=== PATIENT | female | born 2005 | race Caucasian/White ===

== ENCOUNTER 2024-10-03 09:43 | Inpatient (IN) ==
[2024-10-03] MEDS ORDERED: SODIUM CHLORIDE 0.9% 50 ML IV PRN ×2 (10:27→10:50)
[2024-10-03] MEDS ORDERED: SODIUM CHLORIDE 0.9% 100 ML IV PRN ×2 (10:27→10:50)
[2024-10-03 10:41] LABS: Hematocrit (blood only) 17.4 % (37.0-47.0); Hemoglobin 6.2 g/dl (12.0-16.0); Mean Corpuscular Hemoglobin 46.3 pg (25.0-34.0); Mean Corpuscular Hgb Conc 35.6 g/dL (32.0-36.0); Mean Corpuscular Volume 129.9 fL (80.0-100.0); Mean Platelet Volume 9.4 fL (9.4-12.4); Nucleated RBC # (auto) 0.14 K/uL (0.00-0.12); Nucleated RBC % (auto) 1.5 %; Platelet Count 416 K/uL (130-400); RDW Coefficient of Variation 27.9 % (11.5-14.5); RDW Standard Deviation 106.4 fL (36.4-46.3); Red Blood Count 1.34 M/uL (4.20-5.40)
[2024-10-03 10:52] LABS: Anisocytosis Present; Basophils # (auto) 0.02 K/uL (0.00-0.20); Basophils % (auto) 0.2 %; Eosinophils # (auto) 0.16 K/uL (0.00-0.50); Eosinophils % (auto) 1.7 %; Immature Granulocytes # (auto) 0.47 K/uL (0.01-0.20); Lymphocytes # (auto) 1.04 K/uL (1.20-3.40); Lymphocytes % (auto) 11.1 %; Monocytes # (auto) 0.15 K/uL (0.11-0.59); Monocytes % (auto) 1.6 %; Neutrophils # (auto) 7.56 K/uL (1.40-6.50); Neutrophils % (auto) 80.4 %; Polychromasia 3+
[2024-10-03 10:53] LABS: Albumin Globulin Ratio 1.1 (0.9-2); Albumin Level 4.2 gm/dl (3.4-5.0); BUN Creatinine Ratio 18.8 (10-20); Bilirubin Direct 0.2 mg/dl (0-0.2); Bilirubin,Total 1.7 mg/dl (0.2-1.0); Calcium 9.1 mg/dl (8.6-10.3); Creatinine Clr Calc Pharmacy 198.4 ml/min; Globulin 3.8 gm/dl (2.5-4.0); Potassium 3.8 mmol/L (3.5-5.1)
--- NOTE | 2024-10-03 10:56 | Emergency Department Note ---
Impression & Plan Autoimmune hemolytic anemia ED Provider Note Name: MAIA HERNANDEZ Age: 19 Sex: Female Arrives Via: Walk-In Informant: Patient ED Provider: Darrin Gomez MD Chief Complaint: Weakness Impression: As per impressions above Medical Decision Making: Pleasant 19-year-old female arrives for evaluation worsening weakness fatigue and dizziness. She had blood work done this morning which showed severe anemia. Patient has a history of known hemolytic anemia most recent hospitalization about 2 years ago for a severe exacerbation. Patient with a hemoglobin of 6.2. Urgently discussed with oncology specialist at [facility] who advised continuing the prednisone she had already started and then transfusing her likely will need two units if not more. Patient is fully comfortable with hospitalization and transfusion here. She is hemodynamically stable she is breathing comfortably and she is in no distress. Otherwise laboratory workup is unremarkable. I do not see any clear evidence of infectious etiology causing this. I will note that her hemoglobin is dropped from 10-6 in just the last 3 weeks. Hospitalist consulted and patient brought in for further management. Triage/Nursing Notes reviewed by Me Differential:Anemia, infection, dehydration, metabolic abnormality, hypo/hyperglycemia, electrolyte disturbance, anemia, hypoxia, cardiac sources, intracerebral event, toxicologic, neurologic, as well as other pathologies. Vital Signs: reviewed and remarkable for no significant abnormalities Interventions: 1 unit PRBC Labs:ED labs Reviewed by me and remarkable for severe anemia Consults:Discussed with Dr. Mcqueen at [facility] peds hematology. Discussed with [facility] hospitalist here at [facility] who will admit patient for further management. Plan: Disposition:Hospitalization. Condition: Good History of Present Illness: 19-year-old female arrives for evaluation of weakness. Patient notes last several days increasing weakness and fatigue. She gets a bit dizzy when standing for too long has been taking increased breaks at work. She was seen by her PCP yesterday who got some blood work which noted anemia. She sent to the ER for evaluation. Patient states that currently she is feeling all right. She denies any specific chest pain, shortness of breath. She has not had a recent heavy bleeding or bruising. She did have her period which just ended without any heavy bleeding. Denies any syncope, headache, neck pain. No nausea or vomiting. Patient with long history of anemia secondary to hemolytic anemia. Has periodically been on steroids in the past though currently is on sirolimus. Last transfusion was about 2 years ago when she was sent to [facility] for hemoglobin of 4 and acute fluid overload issues. Past Medical History:See Below Home Medications:See Below Allergies: Rocephin, penicillins, sulfa. Vitals:Blood Pressure: 114/72, Pulse 106, RR 20, T 37.0C, O2 97% on RA Physical Exam: GENERAL: Patient is tired appearing and in minimal distress. Pale RESPIRATORY: No dyspnea. Clear to auscultation and equal bilaterally. CARDIOVASCULAR: Mild tachy.No murmur appreciated. EXTREMITIES: Normal motion all extremities, no cyanosis, bilateral lower leg edema L>R chronic per patient NEUROLOGIC: Alert and oriented. No focal neurologic deficits appreciated SKIN: No rash, no jaundice, no diaphoresis. PSYCH: Appropriate GCS: 15 ED Course: Times/Reassessments: Stable on repeat evaluations and in no distress. Critical Care: I have personally spent 40 minutes of critical care time in the direct management of this patient. Acute severe anemia secondary to hemolytic anemia requiring transfusion and ugent consultation with specialist. This was a life/limb threatening event. This 40 minutes is in excess of all separately billable procedures. 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/06/13) Family History (Updated 10/03/24 @ 11:55 by Carri Minaya PA-C) Father Cancer Kidney cancer Social History Smoking Status: Current every day smoker Tobacco Type: E-cigarettes / Vaping Second Hand Exposure: Yes; Do You Dip or Chew Tobacco: No; Tobacco Cessation Education Requested by Patient: No Hx Alcohol Use: Yes Alcohol type: hard liquor Hx Substance Use: No Preferred Language: [place] Island[place] Communication Ability: Effective 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 Beliefs That Will Affect Care: None marital status: Single Current Living Situation: Family current occupational status: employed Other Information That Helps Us Care for You: No Feels Safe at Home: Yes Safety Concerns: Feels Safe At This Time Assistive Devices: None Allergies Allergies Allergy/AdvReac Type Severity Reaction Status Date / Time ceftriaxone Allergy Intermediate RASH Verified 12/17/24 09:25 Penicillins Allergy Unknown AUTO Verified 08/19/24 09:25 IMMUNE DISORDER Sulfa (Sulfonamide Allergy Unknown AUTO Verified 08/19/24 09:25 Antibiotics) IMMUNE DISORDER Home Meds Home Medications Medication Instructions Recorded Confirmed calcium carbonate (Tums) 200 mg PO DIRECTED PRN 03/28/23 10/03/24 HEARTBURN/INDIGESTION cholecalciferol (vitamin D3) 25 25 mcg PO DAILY 03/28/23 10/03/24 mcg (1,000 unit) capsule (Vitamin D3) sirolimus 2 mg tablet 2 mg PO QAM 05/19/23 10/03/24 aripiprazole 15 mg tablet 15 mg PO DAILY 08/19/24 10/03/24 buspirone 15 mg tablet 15 mg PO BID 08/19/24 10/03/24 levothyroxine 137 mcg tablet 137 mcg PO DAILYBB 08/19/24 10/03/24 sertraline 100 mg tablet 100 mg PO DAILY 08/19/24 10/03/24 trazodone 50 mg tablet 50 mg PO HS PRN sleeplessness 08/19/24 10/03/24 triamcinolone acetonide 0.1 % 1 applic topical BID 08/19/24 10/03/24 topical cream Results & Data (ED) Vital Signs Vital Signs - 24 hr 10/03/24 11:21 10/03/24 11:27 10/03/24 11:30 Pulse Rate 116 H 95 H Pulse Rate [Apical] Pulse Rate from SpO2 Sensor 118 H 95 H Respiratory Rate 18 25 H Respiratory Effort / Characteristics Respiratory Depth Respiratory Pattern Blood Pressure 141/88 H Blood Pressure [Left Arm] Blood Pressure Mean 105 Blood Pressure Mean [Left Arm] Pulse Oximetry 98 97 Oxygen Delivery Method 10/03/24 11:36 10/03/24 11:48 10/03/24 11:51 Pulse Rate 95 H 97 H 94 H Pulse Rate [Apical] Pulse Rate from SpO2 Sensor 95 H 97 H 94 H Respiratory Rate 28 H 33 H 29 H Respiratory Effort / Characteristics Respiratory Depth Respiratory Pattern Blood Pressure Blood Pressure [Left Arm] Blood Pressure Mean Blood Pressure Mean [Left Arm] Pulse Oximetry 97 98 98 Oxygen Delivery Method 10/03/24 12:00 10/03/24 12:00 10/03/24 12:00 Pulse Rate 99 H Pulse Rate [Apical] 93 H Pulse Rate from SpO2 Sensor 100 H Respiratory Rate 20 16 Respiratory Effort / Characteristics Non-Labored Spontaneous Respiratory Depth Normal Respiratory Pattern Regular Blood Pressure 147/95 H Blood Pressure [Left Arm] 147/95 H Blood Pressure Mean 105 Blood Pressure Mean [Left Arm] 112 Pulse Oximetry 97 98 Oxygen Delivery Method Room Air Laboratory Data 10/04/24 06:40 10/04/24 06:40 Lab Results 10/03/24 10/03/24 10/03/24 Range/Units 10:15 10:15 10:15 WBC 9.40 (4.8-10.8) K/ul RBC 1.34 L (4.20-5.40) M/uL Hgb 6.2 L* (12.0-16.0) g/dl Hct 17.4 L* (37.0-47.0) % MCV 129.9 H (80.0-100.0) fL MCH 46.3 H (25.0-34.0) pg MCHC 35.6 (32.0-36.0) g/dL RDW Std Deviation 106.4 H (36.4-46.3) fL RDW Coeff of Jesenia 27.9 H (11.5-14.5) % Plt Count 416 H (130-400) K/uL MPV 9.4 (9.4-12.4) fL Immature Gran % (Auto) 5.0 % Neut % (Auto) 80.4 % Lymph % (Auto) 11.1 % [place] % (Auto) 1.6 % Eos % (Auto) 1.7 % Baso % (Auto) 0.2 % Reticulocyte % (Auto) 26.26 H Cancelled (0.50-2.00) % Neut # (Auto) 7.56 H (1.40-6.50) K/uL Lymph # (Auto) 1.04 L (1.20-3.40) K/uL [place] # (Auto) 0.15 (0.11-0.59) K/uL Eos # (Auto) 0.16 (0.00-0.50) K/uL Baso # (Auto) 0.02 (0.00-0.20) K/uL Reticulocyte # 0.350 H Cancelled (0.020-0.100) 10^6/uL Immature Gran # (Auto) 0.47 H (0.01-0.20) K/uL Absolute Nucleated RBC 0.14 H (0.00-0.12) K/uL Nucleated RBC % (auto) 1.5 % Polychromasia 3+ Anisocytosis Present Peripher Smr Path Cons Sodium (136-145) mmol/L Potassium (3.5-5.1) mmol/L Chloride (98-107) mmol/L Carbon Dioxide (21-32) mmol/L Anion Gap (3-11) BUN (6-23) mg/dl Creatinine (0.6-1.2) mg/dl Est Cr Clr Drug Dosing ml/min eGFR BUN/Creatinine Ratio (10-20) Glucose (70-99(Fasting)) mg/dl Calcium (8.6-10.3) mg/dl Total Bilirubin (0.2-1.0) mg/dl Direct Bilirubin (0-0.2) mg/dl AST (13-39) U/L ALT (7-52) U/L Alkaline Phosphatase (34-104) U/L Lactate Dehydrogenase (86-244) U/L Total Protein (6.0-8.3) gm/dl Albumin (3.4-5.0) gm/dl Globulin (2.5-4.0) gm/dl Albumin/Globulin Ratio (0.9-2) Blood Type Antibody Screen Antibody ID Comment Crossmatch 10/03/24 Range/Units 10:15 WBC (4.8-10.8) K/ul RBC (4.20-5.40) M/uL Hgb (12.0-16.0) g/dl Hct (37.0-47.0) % MCV (80.0-100.0) fL MCH (25.0-34.0) pg MCHC (32.0-36.0) g/dL RDW Std Deviation (36.4-46.3) fL RDW Coeff of Jes[place] (11.5-14.5) % Plt Count (130-400) K/uL MPV (9.4-12.4) fL Immature Gran % (Auto) % Neut % (Auto) % Lymph % (Auto) % [place] % (Auto) % Eos % (Auto) % Baso % (Auto) % Reticulocyte % (Auto) (0.50-2.00) % Neut # (Auto) (1.40-6.50) K/uL Lymph # (Auto) (1.20-3.40) K/uL [place] # (Auto) (0.11-0.59) K/uL Eos # (Auto) (0.00-0.50) K/uL Baso # (Auto) (0.00-0.20) K/uL Reticulocyte # (0.020-0.100) 10^6/uL Immature Gran # (Auto) (0.01-0.20) K/uL Absolute Nucleated RBC (0.00-0.12) K/uL Nucleated RBC % (auto) % Polychromasia Anisocytosis Peripher Smr Path Cons Cancelled Sodium 137 (136-145) mmol/L Potassium 3.8 (3.5-5.1) mmol/L Chloride 108 H (98-107) mmol/L Carbon Dioxide 21 (21-32) mmol/L Anion Gap 8 (3-11) BUN 9 (6-23) mg/dl Creatinine 0.48 L (0.6-1.2) mg/dl Est Cr Clr Drug Dosing 198.4 ml/min eGFR 138.11 BUN/Creatinine Ratio 18.8 (10-20) Glucose 135 H (70-99(Fasting)) mg/dl Calcium 9.1 (8.6-10.3) mg/dl Total Bilirubin 1.7 H (0.2-1.0) mg/dl Direct Bilirubin 0.2 (0-0.2) mg/dl AST 22 (13-39) U/L ALT 15 (7-52) U/L Alkaline Phosphatase 87 (34-104) U/L Lactate Dehydrogenase 338 H (86-244) U/L Total Protein 8.0 (6.0-8.3) gm/dl Albumin 4.2 (3.4-5.0) gm/dl Globulin 3.8 (2.5-4.0) gm/dl Albumin/Globulin Ratio 1.1 (0.9-2) Blood Type A Positive Antibody Screen POSITIVE A Antibody ID Comment Cancelled Crossmatch See Detail Administered Medications Famotidine (Famotidine 20 Mg Tab) 20 mg PO BID FABRICIO Stop: 11/03/24 08:59 Last Admin: 10/04/24 09:39 Dose: 20 mg Documented By: JESSICA Prednisone (Prednisone 50 Mg Tab) 50 mg PO BID FABRICIO Stop: 11/02/24 20:59 Last Admin: 10/04/24 08:57 Dose: 50 mg Documented By: Admin: 10/03/24 20:54 Dose: 50 mg Documented By: EZE Sirolimus (Sirolimus 0.5 Mg Tablet) 2 mg PO QAM FABRICIO Stop: 11/03/24 09:14 Last Admin: 10/04/24 09:39 Dose: 2 mg Documented By: JESSICA Discharge Plan Visit Data Chief Complaint: Referred by Doctor Stated Complaint: HBG 6.6, REF BY DR ED Provider: Darrin Gomez Discharge Problem: Autoimmune hemolytic anemia Patient Disposition: Admitted As Inpatient Discharge Instructions Interventions: ED Discharge Assessment Last Done: 10/03/24 12:55
--- NOTE | 2024-10-03 11:58 | History & Physical Report ---
Date of Service October 03, 2024 Assessment & Plan (1) Autoimmune hemolytic anemia: (2) Mccormick syndrome: (3) Hypothyroidism: Plan Autoimmune hemolytic anemia Titi syndrome -Admit the patient to [facility] with telemetry -Transfuse 2 units PRBCs, immunosuppressed at baseline, will need irradiated/leukoreduced blood from [facility], -Add on haptoglobin, LDH, reticulocyte count, peripheral blood smear -Continue prednisone 50 mg twice daily stress dosing - Discussed with Dr. 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 -Continue sirolimus Hypothyroidism -Continue levothyroxine 137 mcg daily Borderline Personality disorder Anxiety with depression -Continue Abilify 10 mg daily, BuSpar 15 mg twice daily, sertraline 100 mg daily. Hold trazodone 100 mg HS prn due to fatigue DVT ppx: Ambulatory Lines: PIV x 1 FEN/GI: Regular diet CODE: Full code Dispo: From home, likely to remain in the hospital x 1-2 days A total of 75 minutes were spent with greater than 50% of that time face to face with the patient, personally reviewing all current laboratories, imaging studies, past medication reconciliation, outpatient chart review, and discussion with specialists to collaborate care for the patient with attending. Please see attending documentation for corrections and/or additions. 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 She also admits to having increased pallor compared to what her typical complexion is. Patient did not quite feel herself therefore presented to lab and had routine blood work drawn as this is similar to previous exacerba tions of anemia. Last time she required a transfusion was in 2022 with 1-2 units. This morning she noticed progressive shortness of breath when attempting to tie her shoes. She began taking her stress dose prednisone 50 mg twice daily this morning for such and presented here to the hospital. Hemoglobin is found to be 6.2 compared to 10.1 on 09/10/24. She had outpatient blood work completed on yesterday which showed hemoglobin of 6.6 and was referred here. Patient admits to nicotine vape use daily, would like a nicotine patch. She denies any other illicit drug use or alcohol use. Allergies Allergy/AdvReac Type Severity Reaction Status Date / Time ceftriaxone Allergy Intermediate RASH Verified 08/19/24 09:25 Penicillins Allergy Unknown AUTO Verified 08/19/24 09:25 IMMUNE DISORDER Sulfa (Sulfonamide Allergy Unknown AUTO Verified 08/19/24 09:25 Antibiotics) IMMUNE DISORDER Home Medications Medication Instructions Recorded Confirmed Type calcium carbonate (Tums) 200 mg PO DIRECTED PRN 03/28/23 10/03/24 History HEARTBURN/INDIGESTION cholecalciferol (vitamin D3) 25 25 mcg PO DAILY 03/28/23 10/03/24 History mcg (1,000 unit) capsule (Vitamin D3) sirolimus 2 mg tablet 2 mg PO QAM 05/19/23 10/03/24 History aripiprazole 15 mg tablet 15 mg PO DAILY 08/19/24 10/03/24 History buspirone 15 mg tablet 15 mg PO BID 08/19/24 10/03/24 History levothyroxine 137 mcg tablet 137 mcg PO DAILYBB 08/19/24 10/03/24 History sertraline 100 mg tablet 100 mg PO DAILY 08/19/24 10/03/24 History trazodone 50 mg tablet 50 mg PO HS PRN sleeplessness 08/19/24 10/03/24 History triamcinolone acetonide 0.1 % 1 applic topical BID 08/19/24 10/03/24 History topical cream Past Med/Surg History Problem List (Updated 10/03/24 @ 12:26 by Carri Minaya PA-C) Mccormick syndrome Anxiety Autoimmune hemolytic anemia (Chronic 06/06/13) Family History (Updated 10/03/24 @ 11:55 by Carri Minaya PA-C) Father Cancer Kidney cancer Social History Smoking Status: Current every day smoker Tobacco Type: E-cigarettes / Vaping Second Hand Exposure: Yes; Do You Dip or Chew Tobacco: No; Tobacco Cessation Education Requested by Patient: No Hx Alcohol Use: Yes Alcohol type: hard liquor Hx Substance Use: No Preferred Language: Qatari Communication Ability: Effective Manager Music Required: No Beliefs That Will Affect Care: None marital status: Single Current Living Situation: Family current occupational status: employed Other Information That Helps Us Care for You: No Feels Safe at Home: Yes Safety Concerns: Feels Safe At This Time Assistive Devices: None Review of Systems Review of Systems: Constitutional: No fever, sweats or chills, no lightheadedness or dizziness, + pallor Eyes: No diplopia, no worsening or blurred vision ENT: normal hearing, no trouble swallowing Respiratory: No cough, sputum, + dyspnea on exertion Cardiovascular: No chest pain, tightness or palpitations Abdomen: No pain, nausea, vomiting, diarrhea or constipation Musculoskeletal: No joint pain, calf pain, swelling Neurologic: + Generalized fatigue and weakness, no numbness/tingling, or balance problems Psychiatric: History of anxiety and depression on medication Skin: No rash or itch, + pallor Physical Exam Physical Exam: General: awake, alert, no apparent distress, obese BMI 43.6, white female, + pallor Head: Normocephalic, atraumatic ENT: PERRL, EOMI, no pharyngeal exudate, mucous membranes moist Chest: Clear to auscultation, on room air, no adventitious breath sounds Cardiac: Regular rate and rhythm, no murmur, no JVD, normal peripheral pulses, good capillary refill Abdominal: NABS x 4 quadrants, soft, nondistended, nontender to palpation, no rebound or guarding Extremities: Normal inspection, no peripheral edema or erythema, calfs nontender to palpation Psych: Normal mood and affect Neuro: AAO x 3, strength intact bilaterally and rated 5/5, no motor deficits, speech is clear, no peripheral sensory deficits Results & Data Results & Data Vital Signs (Past 12 Hours) Vital Signs Temp Pulse Pulse Resp BP BP Pulse Ox 10/03/24 11:03 105 H 22 96 10/03/24 11:00 134/72 10/03/24 10:54 114/77 10/03/24 10:51 101 H 13 10/03/24 10:48 101 H 15 10/03/24 10:21 100 H 26 H 10/03/24 10:20 106 H 10/03/24 10:06 96 H 20 114/72 97 10/03/24 10:00 114/72 10/03/24 09:51 37.0 C 103 H 20 135/84 95 O2 Del Method 10/03/24 11:03 10/03/24 11:00 10/03/24 10:54 10/03/24 10:51 10/03/24 10:48 10/03/24 10:21 10/03/24 10:20 10/03/24 10:06 Room Air 10/03/24 10:00 10/03/24 09:51 Room Air Laboratory Results 10/03/24 10:15 WBC 9.40 RBC 1.34 L Hgb 6.2 L* Hct 17.4 L* MCV 129.9 H MCH 46.3 H MCHC 35.6 RDW Std Deviation 106.4 H RDW Coeff of Jes[place] 27.9 H Plt Count 416 H MPV 9.4 Immature Gran % (Auto) 5.0 Neut % (Auto) 80.4 Lymph % (Auto) 11.1 [place] % (Auto) 1.6 Eos % (Auto) 1.7 Baso % (Auto) 0.2 Neut # (Auto) 7.56 H Lymph # (Auto) 1.04 L [place] # (Auto) 0.15 Eos # (Auto) 0.16 Baso # (Auto) 0.02 Immature Gran # (Auto) 0.47 H Absolute Nucleated RBC 0.14 H Nucleated RBC % (auto) 1.5 Polychromasia 3+ Anisocytosis Present Sodium 137 Potassium 3.8 Chloride 108 H Carbon Dioxide 21 Anion Gap 8 BUN 9 Creatinine 0.48 L Est Cr Clr Drug Dosing 198.4 eGFR 138.11 BUN/Creatinine Ratio 18.8 Glucose 135 H Calcium 9.1 Total Bilirubin 1.7 H Direct Bilirubin 0.2 AST 22 ALT 15 Alkaline Phosphatase 87 Total Protein 8.0 Albumin 4.2 Globulin 3.8 Albumin/Globulin Ratio 1.1 Crossmatch See Detail Supervising Physician Co-Signing Physician Notes Patient is a 19-year-old female with past medical history of autoimmune hemolytic anemia on sirolimus 2 mg once a day who presents to the hospital after she was found to have low hemoglobin as outpatient along with worsening fatigue. Patient's hemoglobin was found to be 6.2 g/dL. After discussion with her pediatric plastic parts fabricator trimmer; recommended 2 units of packed RBC transfusion along with continuation of prednisone 50 mg twice daily. Discussed with blood bank; blood is being obtained from [facility] and will be available here likely later in the evening. Peripheral blood smear reviewed; finding consistent with autoimmune hemolytic anemia. Reticulocyte count elevated as well as LDH. I have reviewed the advanced practitioner's documentation, and I agree with, and take responsibility for the plan of care I spent a total of 30 minutes coordinating, documenting, and providing care for this patient excluding time spent in the performance of separately billed services. All of the aforementioned completed while collaborating with the assigned advanced practitioner for a full treatment plan
[2024-10-03 13:15] LABS: Reticulocyte % 26.26 % (0.50-2.00)
--- OUTSIDE RECORDS SUMMARY | 2024-10-03 13:58 | External Medical Summary | Summary of Care ---
Author Name Unknown Organization [facility] Address [address] [facility] [place] [address] Phone [phone] Care Team Providers Care Bundle Shaker Name Role Phone Marito Echeverria Primary Care Provider Reason for Visit * Reason Comments Outpatient Testing Encounter Details Date Type Department Care Team (Late st Contact Info) Description 10/02/2024 3:50 PM EST Laboratory Laboratory [address] [place] [phone] [place] [address] AIHA (autoimmune hemolytic anemia) ([facility]); [employer] Other*[id number] Allergies Active Allergy Reactions Criticality Noted Date Comments Sulfamethoxazole-Tri methoprim 03/21/2018 Penicillins 12/18/2012 Father said he was told not to give pt penicillin. Rituximab Abdominal pain,Flushing 09/30/2010 See clinic notes Ceftriaxone Sodium Hives Medium 09/13/2010 30 minutes post infusion Sulfa Antibiotics Hematologic complications (Please comment) 09/07/2008 Concerns of bactrim association with AIHA documented as of this encounter (statuses as of 10/02/2024) Medications TYLENOL 8 HOUR 650 MG PO TBCRIndications:He adache(784.0) Please take 1 tab by mouth every 8 hours for headache 60 Tab 6 2 Active VITAMIN D3 HIGH POTENCY 1000 UNITS CapsuleIndications :Warm antibody hemolytic anemia (HCC),Vitamin D insufficiency TAKE 1 CAP BY MOUTH DAILY. 30 Cap 2 7 Active ARIPiprazole 10 MG Oral Tablet (Abilify) Take 1 Tablet by mouth in the morning. 3 Active Loratadine 10 MG Oral Tablet (Claritin) Take 1 Tablet by mouth in the morning. 4 Active Levothyroxine Sodium 137 MCG Oral Tablet Take 1 Tablet by mouth in the morning. (at least 30 min prior to breakfast or other meds). 90 Tablet 3 4 Active Nystatin 944787 UNIT/GM External Cream Apply topically to affected area 2 times a day. To affacted area for two weeks. 60 g 2 4 Active Sertraline HCl 100 MG Oral Tablet (Zoloft) Take 1 Tablet by mouth in the morning. 4 Active busPIRone HCl 15 MG Oral Tablet (Buspar) Take 1 Tablet by mouth in the morning and 1 Tablet before bedtime. 4 Active Sirolimus 2 MG Oral TabletIndications: Warm antibody hemolytic anemia (HCC) Take 1 Tablet by mouth in the morning. 60 Tablet 2 4 Active Meclizine HCl 25 MG Oral Tablet (Antivert)Indicati ons:Vertigo Take 1 Tablet by mouth 3 times a day as needed for Dizziness. 30 Tablet 1 4 Active Triamcinolone Acetonide 0.1 % External Cream (Aristocort)Indica tions:Rash and nonspecific skin eruption Apply topically to affected area 2 times a day. To affected area. 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 Chronic urticaria 10/01/2017 Overview (10/01/2017): since 2014 Immunosuppressed status 01/27/2016 AIHA (autoimmune hemolytic anemia) 05/12/2015 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 Medically noncompliant documented as of this encounter (statuses as of 10/02/2024) Resolved Problems Problem Noted Date Diagnosed Date Resolved Date Current moderate episode of major depressive disorder without prior episode 03/25/2020 2 Need for pneumocystis prophylaxis 01/27/2016 02/01/2018 Need for pneumocystis prophylaxis 05/12/2015 08/07/2015 Internal tibial torsion 12/02/201305/2015 Ankle weakness 12/02/2013 05/12/2015 Genu valgum 12/02/2013 05/12/2015 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 (11/29/2011): Due to IVIG Hypogammaglobulinemia 09/08/20092009 Acute sinusitis 08/19/2009 09/08/2009 Autoimmune hemolytic anemia 09/22/2007 08/07/2015 Seizure disorder, complex pa rtial, without intractable epilepsy 06/25/2007 09/08/2009 documented as of this encounter (statuses as of 10/02/2024) Immunizations Name Administration Dates Next Due DTaP Dipth/Tet/Acell Pertussis (Infanrix), Peds 01/18/2007,05/12/2004,2003,2002,2003 HIB PRP-T, 4 Dose, PF, IM (H iberix, ActHib) 05/12/2004,2003,2003,2002 Hepatitis A, Ped/Adol., 18 y ear and below, 2-Dose 01/21/2008,01/18/2007 Hepatitis B, 0-19 yrs 2003,2003,01/01 IPV - Polio Virus Vaccine (Inact) 2006,2003,2003,2002 MMR - Measles/Mumps/Rubella Vaccine 01/18/2007,0 01/18/2004 Pneumococcal Conjugate Vacci ne, 7 Valent 07/19/2004,2003,2003,2002 Seasonal Influenza Vac., MDV , IM, 0.5 mL (Fluzone) 08/19/2010,05/24/2009 Varicella Vaccine (Chicken Pox) 01/18/2007,01/17 documented as of this encounter Social History Tobacco Use Types Packs/Day Years Used Date Smoking Tobacco: Former Cigarettes Passive Smoke Exposure: Yes Smokeless Tobacco: Never Comments:Parents smoke outsi de Alcohol Use Standard Drinks/Week Comments Never 0 (1 standard drink = 0.6 oz pur e alcohol) PHQ-2 Answer Date Recorded PHQ-2 Score 0 11/15/2018 Comments No Sex and Gender Information Value Date Recorded Sex Assigned at Female 10/17/2022 2:14 PM EST Legal Sex Female 5:50 AM EST Gender Identity Transgender Male 10/17/2022 2:14 PM EST Sexual Orientation pansexual 03/28/2023 9: 16 PM EDT documented as of this encounter Functional Status * Are you deaf or do you have serious difficulty hearing? Answer Date of Assessment Author No 03/28/2023 8:28 PM EDT Preeti Tellez RN * Are you blind or do you have serious difficulty seeing, even when wearing glasses? Answer Date of Assessment Author No 03/28/2023 8:28 PM EDT Preeti Tellez RN * Do you have serious difficulty walking or climbing stairs? (5 years old or older) Answer Date of Assessment Author No 03/28/2023 8:28 PM EDT Preeti Peralta RN * Do you have difficulty dressing or bathing? (5 years old or older) Answer Date of Assessment Author No 03/28/2023 8:28 PM EDT Preeti Tellez RN * Because of a physical, mental, or emotional condition, do you have difficulty doing errands alone such as visiting a doctors office or shopping? (15 years old or older) Answer Date of Assessment Author No 03/28/2023 8:28 PM EDT Preeti Tellez RN documented as of this encounter Mental Status * Because of a physical, mental, or emotional condition, do you have serious difficulty concentrating, remembering, or making decisions? (5 years old or older) Answer Entry Date Author No 03/28/2023 8:28 PM EDT Preeti Tellez RN documented in this encounter Plan of Treatment Upcoming Encounters Date Type Department Care Team (Late st Contact Info) Description 11/11/2024 8:40 AM EDT [facility] [address] [place] [address] Dusty Perry MD [address], [place] [phone] 07/03/2025 10:40 AM EDT Office Visit Family Medicine [address] [phone] Madison Montelongo MD [address] [place] [address] [place] [address] Pending Results Name Type Priority Associated Diagnoses Date /Time CBC WITH WBC DIFFERENTIAL Lab Routine AIHA (autoimmune hemolytic anemia) ([facility]) 10/02/2024 3:46 PM EST RETICULOCYTE PANEL Lab Routine AIHA (autoimmune hemolytic anemia) ([facility]) 10/02/2024 3:46 PM EST LD Lab Routine AIHA (autoimmune hemolytic anemia) ([facility]) 10/02/2024 3:46 PM EST CBC Lab Routine AIHA (autoimmune hemolytic anemia) ([facility]) 10/02/2024 3:46 PM EST DIFFERENTIAL, AUTOMATED Lab Routine AIHA (autoimmune hemolytic anemia) ([facility]) 10/02/2024 3:46 PM EST Scheduled Orders Name Type Priority Associated Diagnoses Orde r Schedule MYCODE SST1 Lab Routine [employer] Other*[id number] Ordered: 10/02/2024 MYCODE SST2 Lab Routine [employer] Other*[id number] Ordered: 10/02/2024 Health Maintenance Due Date Last Done Comments COVID-19 Vaccine (#1) 01/10/2008 DTap/Tdap Vaccines (6 - Tdap) 2014 01/18/2007, 05/12/2004, 2003, Additional history exists HPV (Gardasil) Vaccine (1 - 3-dose series) 2018 Depression Monitoring 11/16/2019 11/15/2018 Pneumococcal Vaccine: Pediatrics (0 to 5 Years) and At-Risk Patients (6 to 18 Years and 19+ Years) (1 of 2 - PCV) 2022 Pap Smear 01/10/2024 Gonorrhea / Chlamydia Screen 03/29/2024 03/29/2023 Influenza Vaccine (FLU shot) (#1) 2024 08/19/2010, 05/24/2009 Yearly Wellness Visit 06/02/2025 06/02/2024 , 08/01/2022, 03/25/2020, Additional history exists TSH 08/19/2025 08/19/2024, 07/05, 07/11/2024, Additional history exists Hepatitis B Vaccine Completed 2003, 2003, 2003 MENINGOCOCCAL (MENACTRA/MENVEO) Aged Out No longer eligible based on patient's age to complete this topic documented as of this encounter Medical Devices Not on filedocumented as of this encounter Visit Diagnoses Diagnosis AIHA (autoimmune hemolytic anemia) (HCC) Autoimmune hemolytic anemias [employer] Other*[id number] documented in this encounter Advance Directives * Full Code (Latest Code Status on File) Date Activated Date Inactivated Comments 03/28/2023 8:16 PM 04/01/2023 2:17 PM Question Answer Comments Discussion of Advance Direct comfort occurred with: Not Discussed due to patient's condition Does the patient have a Living Will? No Does the patient have Health Care Power of Ingot Buggy Operator? No * Full Code Date Activated Date Inactivated Comments 12/25/2014 2:53 PM 12/30/2014 4:31 PM This order r eflects the patients wishes and were consensually agreed upon. Question Answer Comments Discussion of Advance Directives occurred with: Not Discussed Does the patient have a Living Will? No Does the patient have Health Care Power of Attor bob? No * Full Code Date Activated Date Inactivated Comments 12/28/2011 1:56 PM 01/01/2012 6:48 PM This order r eflects the patients wishes and were consensually agreed upon. Question Answer Comments Discussion of Advance Directives occurred with: Not Discussed * Full Code Date Activated Date Inactivated Comments 11/27/2011 7:32 PM 11/29/2011 6:18 PM This order r eflects the patients wishes and were consensually agreed upon. Question Answer Comments Discussion of Advance Directives occurred with: Not Discussed Does the patient have a Living Will? No Does the patient have Health Care Power of Attor bob? No * Full Code Date Activated Date Inactivated Comments 11/27/2011 6:13 PM 11/27/2011 7:32 PM This order r eflects the patients wishes and were consensually agreed upon. Question Answer Comments Discussion of Advance Directives occurred with: Not Discussed Does the patient have a Living Will? No Does the patient have Health Care Power of Attor bob? No Care Teams Bundle Shaker Relationship Specialty Start Date End Date Marito Echeverria CRNP [address] [place] [address] [place] [phone] PCP - General Nurse Practitioner 09/10/24 documented as of this encounter
--- OUTSIDE RECORDS SUMMARY | 2024-10-03 13:58 | External Medical Summary | Summary of Care ---
Author Name Unknown Organization [facility] Address [address] [place] [address] Phone [phone] Care Team Providers Care Procurement Intern Name Role Phone Marito Echeverria Primary Care Provider Encounter Details Date Type Department Care Team (Late st Contact Info) Description 10/03/2024 Orders Only Pediatric Hematology/Oncology, [place] [address] [place] [address] Alejandra Fung MD [address] [place] [address] AIHA (autoimmune hemolytic anemia) (HCC)* Allergies Active Allergy Reactions Criticality Noted Date Comments Sulfamethoxazole-Tri methoprim 03/21/2018 Penicillins 12/18/2012 Father said he was told not to give pt penicillin. Rituximab Abdominal pain,Flushing 09/30/2010 See clinic notes Ceftriaxone Sodium Hives Medium 09/13/2010 30 minutes post infusion Sulfa Antibiotics Hematologic complications (Please comment) 09/07/2008 Concerns of bactrim association with AIHA documented as of this encounter (statuses as of 10/03/2024) Medications TYLENOL 8 HOUR 650 MG PO [...] meds). 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 Chronic urticaria 10/01/2017 Overview (10/01/2017): since 2014 Immunosuppressed status 01/27/2016 AIHA (autoimmune hemolytic anemia) 05/12/2015 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 Medically noncompliant documented as of this encounter (statuses as of 10/03/2024) Resolved Problems Problem Noted Date Diagnosed Date Resolved Date Current moderate episode of major depressive disorder without prior episode 03/25/2020 2 Need for pneumocystis prophylaxis 01/27/2016 02/01/2018 Need for pneumocystis prophylaxis 05/12/2015 08/07/2015 Internal tibial torsion 12/02/2013 09/05/2015 Ankle weakness 12/02/2013 05/12/2015 Genu valgum 12/02/2013 05/12/2015 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 (11/29/2011): Due to IVIG Hypogammaglobulinemia 09/08/20092009 Acute sinusitis 08/19/2009 09/08/2009 Autoimmune hemolytic anemia 09/22/2007 08/07/2015 Seizure disorder, complex pa rtial, 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 (5 years old or older) Answer Entry Date Author No 03/28/2023 8:28 PM EDT Klementov ich, Preeti, RN documented in this encounter Plan of Treatment Upcoming Encounters Date Type Department Care Team (Late st Contact Info) Description 11/11/2024 8:40 AM EDT Telemedicine Pediatric Hematology/Oncology, [place] [address] [place] [address] Dusty Perry MD [address] [place] [address] 07/03/2025 10:40 AM EDT Office Visit Family Medicine [address] [phone] Madison Montelongo MD [address] [place] [address] [place] [address] Scheduled Orders Name Type Priority Associated Diagnoses Orde r Schedule CBC WITH WBC DIFFERENTIAL Lab Routine AIHA (autoimmune hemolytic anemia) (HCC) Daily for 4 Occurrences starting 10/03/2024 until 10/03/2025 LD Lab Routine AIHA (autoimmune hemolytic anemia) (HCC) Daily for 4 Occurrences starting 10/03/2024 until 10/03/2025 RETICULOCYTE PANEL Lab Routine AIHA (autoimmune hemolytic anemia) (HCC) Daily for 4 Occurrences starting 10/03/2024 until 10/03/2025 Health Maintenance Due Date Last Done Comments [...] 03/25/2020, Additional history exists TSH 08/19/2025 08/19/2024, 11/2 09/2023, 07/11/2024, Additional history exists Hepatitis B Vaccine Completed 2003, 2003, 2003 MENINGOCOCCAL (MENACTRA/MENVEO) Aged Out No longer eligible based on patient's age to complete this topic documented as of this encounter Medical Devices Not on filedocumented as of this encounter Visit Diagnoses Diagnosis AIHA (autoimmune hemolytic anemia) (HCC)- Primary Autoimmune hemolytic anemias documented in this encounter Advance Directives * Full Code (Latest Code Status on File) Date Activated Date Inactivated Comments 03/28/2023 8:16 PM 04/01/2023 2:17 PM Question Answer Comments Discussion of Advance Direct comfort occurred with: Not Discussed due to patient's condition Does the patient have a Living Will? No Does the patient have Health Care Power of Convention Services Director? No * Full Code Date Activated Date [...] 7:32 PM 11/29/2011 6:18 PM This order reflects the patients wishes and were consensually agreed [...] Power of Attor bob? No Care Teams Procurement Intern Relationship Specialty Start Date End Date Marito Echeverria CRNP [address] [place] [address] [place] [phone] PCP - General Nurse Practitioner 09/10/24 documented as of this encounter
--- OUTSIDE RECORDS SUMMARY | 2024-10-03 13:58 | External Medical Summary | Summary of Care ---
Author Name Unknown Organization [facility] Address [address] [place] [address] Phone [phone] Care Team Providers Care Remelt Worker Name Role Phone Marito Echeverria Primary Care Provider Reason for Visit * Reason Onset Date Comments Test Results 10/03/2024 Encounter Details Date Type Department Care Team (Late st Contact Info) Description 10/03/2024 Telephone Pediatric Hematology/Oncology, [place] [address] [place] [address] Alejandra Fung MD [address] [place] [address] Test Results Allergies Active Allergy Reactions Criticality Noted Date [...] meds). 90 Tablet 3 4 Active Nystatin 491706 UNIT/GM External Cream Apply topically to affected [...] Date Author No 03/28/2023 8:28 PM EDT Klemento vich, Preeti, RN documented in this encounter Miscellaneous Notes * Telephone Encounter - Alejandra Fung MD - 10/03/2024 8:19 AM EST I spoke at length with Claudy regarding interval labs drawn 10/02/24 that showed a precipitous drop in hemoglobin from 10.1 g/dL on 09/10/24 to 6.6 g/dL on 10/02/24. Claudy endorsed that they have started 50 mg BID prednisone, as usual during a flare. They endorsed headache and feeling dizzy. I advised to present to [facility] ED for PRBC transfusion; they stated that previously [place] ED was unable to provide blood (likely due to AIHA ORALIA difficulties). Claudy is unable to present to ED now as they don't have transportation, but endorsed they will be presenting to therapy group today who will be able to transport them to [place] ED via ambulance/ambulette. I advised Claudy to seek emergency care for any injury/syncopal episode in the meantime. documented in this encounter Plan of Treatment Upcoming Encounters Date Type Department Care Team (Late st Contact Info) Description 11/11/2024 8:40 AM EDT [facility] [address] [place] [address] Dusty Perry MD [address] [place] [address] 07/03/2025 10:40 AM EDT Office Visit Family Medicine [address] [phone] Madison Montelongo MD [address] [place] [address] [place] [phone] Health Maintenance Due Date Last Done Comments [...] Not on filedocumented as of this encounter Advance Directives * Full Code (Latest Code Status on File) Date Activated Date Inactivated Comments 03/28/2023 8:16 PM 04/01/2023 2:17 PM Question Answer Comments Discussion of Advance Direct comfort occurred with: Not Discussed due to patient's condition Does the patient have a Living Will? No Does the patient have Health Care Power of Topology Professor? No * Full Code Date Activated Date [...] Power of Attor bob? No Care Teams Remelt Worker Relationship Specialty Start Date End Date Marito Echeverria CRNP [address] [place] [address] [place] [phone] PCP - General Nurse Practitioner 09/10/24 documented as of this encounter
--- OUTSIDE RECORDS SUMMARY | 2024-10-03 13:58 | External Medical Summary | Summary of Care ---
Author Name Unknown Organization [facility] Address [address] [place] [place] [address] Phone [phone] Care Team Providers Care Wild Life Photographer Name Role Phone Marito Echeverria Primary Care Provider Reason for Visit * Reason Comments Outpatient Testing Encounter Details Date Type Department Care Team (Late st Contact Info) Description 10/02/2024 3:50 PM EST Laboratory Laboratory [address] [place] [phone] [place] [address] AIHA (autoimmune hemolytic anemia) ([facility]); [employer] Other*[id number] Allergies Active Allergy Reactions Criticality Noted Date [...] meds). 90 Tablet 3 4 Active Nystatin 048351 UNIT/GM External Cream Apply topically to affected [...] Description 11/11/2024 8:40 AM EDT [facility] [address] [place] [address] Dusty Perry MD [address] [place], [place] [phone] 07/03/2025 10:40 AM EDT Office Visit Family Medicine [address] [phone] [place] Montelongo MD [address] [place] [address] [place] [address] Pending Results Name Type Priority Associated Diagnoses Date /Time CBC WITH WBC DIFFERENTIAL Lab Routine AIHA (autoimmune hemolytic anemia) ([facility]) 10/02/2024 3:46 PM EST RETICULOCYTE PANEL Lab Routine AIHA (autoimmune hemolytic anemia) ([facility]) 10/02/2024 3:46 PM EST LD Lab Routine AIHA (autoimmune hemolytic anemia) ([facility]) 10/02/2024 3:46 PM EST CBC Lab Routine AIHA (autoimmune hemolytic anemia) ([facility]) 10/02/2024 3:46 PM EST DIFFERENTIAL, AUTOMATED Lab Routine AIHA (autoimmune hemolytic anemia) ([facility]) 10/02/2024 3:46 PM EST Scheduled Orders Name Type Priority Associated Diagnoses Orde r Schedule MYCODE SST1 Lab Routine [employer] Other*[id number] Ordered: 10/02/2024 MYCODE SST2 Lab Routine [employer] Other*[id number] Ordered: 10/02/2024 Health Maintenance Due Date Last [...] anemia) (HCC) Autoimmune hemolytic anemias [employer] Other*[id number] documented in this encounter Advance Directives * Full Code (Latest Code Status on File) Date Activated Date Inactivated Comments 03/28/2023 8:16 PM 04/01/2023 2:17 PM Question Answer Comments Discussion of Advance Direct comfort occurred with: Not Discussed due to patient's condition Does the patient have a Living Will? No Does the patient have Health Care Power of Electronic Video Games Servicer? No * Full Code Date Activated Date [...] Power of Attor bob? No Care Teams Wild Life Photographer Relationship Specialty Start Date End Date Marito Echeverria CRNP [address] [place] [address] [place] [phone] PCP - General Nurse Practitioner 09/10/24 documented as of this encounter
--- OUTSIDE RECORDS SUMMARY | 2024-10-03 13:59 | External Medical Summary | Summary of Care ---
Author Name Unknown Organization [facility] Address [address] [facility] [place] [address] Phone [phone] Care Team Providers Care Accountant Manager Name Role Phone Marito Echeverria Primary Care Provider Reason for Visit * Reason Comments Outpatient Testing Encounter Details Date Type Department Care Team (Late st Contact Info) Description 10/02/2024 3:50 PM EST Laboratory Laboratory [address] [place] [phone] [place] [address] AIHA (autoimmune hemolytic anemia) ([facility]); [employer] Other*[id number] Allergies Active Allergy Reactions Criticality Noted Date [...] meds). 90 Tablet 3 4 Active Nystatin 241374 UNIT/GM External Cream Apply topically to affected [...] Description 11/11/2024 8:40 AM EDT [facility] [address] [place] [address] Dusty Perry MD [address] [place] [address] 07/03/2025 10:40 AM EDT Office Visit Family Medicine [address] [address] Madison Montelongo MD [address] [place] [address] [place] [address] Pending Results Name Type Priority Associated Diagnoses Date /Time CBC WITH WBC DIFFERENTIAL Lab Routine AIHA (autoimmune hemolytic anemia) ([facility]) 10/02/2024 3:46 PM EST RETICULOCYTE PANEL Lab Routine AIHA (autoimmune hemolytic anemia) ([facility]) 10/02/2024 3:46 PM EST LD Lab Routine AIHA (autoimmune hemolytic anemia) ([facility]) 10/02/2024 3:46 PM EST CBC Lab Routine AIHA (autoimmune hemolytic anemia) ([facility]) 10/02/2024 3:46 PM EST DIFFERENTIAL, AUTOMATED Lab Routine AIHA (autoimmune hemolytic anemia) ([facility]) 10/02/2024 3:46 PM EST Scheduled Orders Name Type Priority Associated Diagnoses Orde r Schedule MYCODE SST1 Lab Routine [employer] Research Other*[id number] Ordered: 10/02/2024 MYCODE SST2 Lab Routine [employer] Other*[id number] Ordered: 10/02/2024 Health Maintenance Due Date Last [...] anemia) (HCC) Autoimmune hemolytic anemias [employer] Other*[id number] documented in this encounter Advance Directives * Full Code (Latest Code Status on File) Date Activated Date Inactivated Comments 03/28/2023 8:16 PM 04/01/2023 2:17 PM Question Answer Comments Discussion of Advance Direct comfort occurred with: Not Discussed due to patient's condition Does the patient have a Living Will? No Does the patient have Health Care Power of Immigration Case Manager? No * Full Code Date Activated Date [...] Power of Attor bob? No Care Teams Accountant Manager Relationship Specialty Start Date End Date Marito Echeverria CRNP [address] [place] [address] [place] [address] PCP - General Nurse Practitioner 09/10/24 documented as of this encounter
--- OUTSIDE RECORDS SUMMARY | 2024-10-03 13:59 | External Medical Summary ---
Author Name Unknown Address Unknown Organization K01:LABORATORY [facility] - [address] [facility] [address] Laboratory Report Ordering Provider Test Date Status ARUN PALMER 10/02/2024 15:46:44 Final Observation Date Value Abnormality Reference (Units ) Status WBC, Total 10/02/2024 15:46:44 7.24 4.00-10.8 0 (K/uL) Final RBC 10/02/2024 15:46:44 1.80 3.85-5.15 (M/uL) Final Results corrected for probab le cold agglutinin.
Run on dilution. Hemoglobin 10/02/2024 15:46:44 6.6 Below low normal 12 .0-15.3 (g/dL) Final HCT 10/02/2024 15:46:44 22.0 Below low normal 36. 0-45.2 (%) Final Run on dilution. MCV 10/02/2024 15:46:44 122.2 81.5-97.5 (fL) Final Run on dilution. MCH 10/02/2024 15:46:44 34.4 27.0-34.0 (pg) Final Run on dilution. MCHC 10/02/2024 15:46:44 28.2 32.0-36.0 (g/dL) Final Run on dilution. RDW 10/02/2024 15:46:44 20.6 11.5-15.5 (%) Final Platelets 10/02/2024 15:46:44 356 140-400 (K /uL) Final MPV 10/02/2024 15:46:44 10.6 6.6-11.1 ( fL) Final Nucleated erythrocytes/100 leukocytes [Ratio] in Blood by Automated count 10/02/2024 15:46:44 2 Above high normal <=0 (/100 WBCs) Final Performing Location LABORATORY [facility] - [address] [facility] [address]
--- OUTSIDE RECORDS SUMMARY | 2024-10-03 13:59 | External Medical Summary | Summary of Care ---
Author Name Unknown Organization [facility] Address [address] [place] [address] Phone [phone] Care Team Providers Care Resident Care Manager Rn Name Role Phone Madison Montelongo MD Primary Care Provide r Encounter Details Date Type Department Care Team (Late st Contact Info) Description 08/19/2024 Result Scan Unspecified Department <No scans attached> Allergies Active Allergy Reactions Criticality Noted Date Comments Sulfamethoxazole-Tri methoprim 03/21/2018 Penicillins 12/18/2012 Father said he was told not to give pt penicillin. Rituximab Abdominal pain,Flushing 09/30/2010 See clinic notes Ceftriaxone Sodium Hives Medium 09/13/2010 30 minutes post infusion Sulfa Antibiotics Hematologic complications (Please comment) 09/07/2008 Concerns of bactrim association with AIHA documented as of this encounter (statuses as of 09/01/2024) Medications TYLENOL 8 HOUR 650 MG PO [...] meds). 90 Tablet 3 4 Active Nystatin 295718 UNIT/GM External Cream Apply topically to affected [...] as of this encounter (statuses as of 09/01/2024) Active Problems Problem Noted Date Diagnosed Date [...] as of this encounter (statuses as of 09/01/2024) Resolved Problems Problem Noted Date Diagnosed Date [...] as of this encounter (statuses as of 09/01/2024) Immunizations Name Administration Dates Next Due DTaP [...] Description 11/11/2024 8:40 AM EDT [facility] [address] [place] [address] Dusty Perry MD [address] [place] [address] 07/03/2025 10:40 AM EDT Office Visit Family Medicine [address] [place] [address] Madison Montelongo MD [address] [place] [address] [place] [address] Health Maintenance Due Date Last Done Comments [...] Not on filedocumented as of this encounter Procedures Procedure Name Priority Date/Time Associated Diagnosis Comments OUTSIDE LAB RESULTS 08/19/2024 OUTSIDE LAB RESULTS 08/19/2024 OUTSIDE LAB RESULTS 08/19/2024 documented in this encounter Results * OUTSIDE LAB RESULTS (08/19/2024) 08/19/2024 us No Physician Data Unknown LABORATORY Final Result * OUTSIDE LAB RESULTS (08/19/2024) 08/19/2024 us No Physician Data Unknown LABORATORY Final Result * OUTSIDE LAB RESULTS (08/19/2024) 08/19/2024 us No Physician Data Unknown LABORATORY Final Result documented in this encounter Advance Directives * Full Code (Latest Code Status on File) Date Activated Date Inactivated Comments 03/28/2023 8:16 PM 04/01/2023 2:17 PM Question Answer Comments Discussion of Advance Direct comfort occurred with: Not Discussed due to patient's condition Does the patient have a Living Will? No Does the patient have Health Care Power of Solder Leveler Printed Circuit Boards? No * Full Code Date Activated Date [...] Power of Attor bob? No Care Teams Resident Care Manager Rn Relationship Specialty Start Date End Date Madison Montelongo MD [address] [place] [address] [place] [phone] PCP - General Family Medicine 06/11/15 documented as of this encounter
--- OUTSIDE RECORDS SUMMARY | 2024-10-03 13:59 | External Medical Summary | Summary of Care ---
Author Name Unknown Organization [facility] Address [address] [place] [address] Phone [phone] Care Team Providers Care Well Blower Name Role Phone Marito Echeverria Primary Care Provider Encounter Details Date Type Department Care Team (Late st Contact Info) Description 09/22/2024 Population Health External Data Unspecified Department Allergies Active Allergy Reactions Criticality Noted Date Comments Sulfamethoxazole-Tri methoprim 03/21/2018 Penicillins 12/18/2012 Father said he was told not to give pt penicillin. Rituximab Abdominal pain,Flushing 09/30/2010 See clinic notes Ceftriaxone Sodium Hives Medium 09/13/2010 30 minutes post infusion Sulfa Antibiotics Hematologic complications (Please comment) 09/07/2008 Concerns of bactrim association with AIHA documented as of this encounter (statuses as of 09/22/2024) Medications TYLENOL 8 HOUR 650 MG PO [...] meds). 90 Tablet 3 4 Active Nystatin 431494 UNIT/GM External Cream Apply topically to affected [...] as of this encounter (statuses as of 09/22/2024) Active Problems Problem Noted Date Diagnosed Date [...] as of this encounter (statuses as of 09/22/2024) Resolved Problems Problem Noted Date Diagnosed Date [...] as of this encounter (statuses as of 09/22/2024) Immunizations Name Administration Dates Next Due DTaP [...] Description 11/11/2024 8:40 AM EDT [facility] [address] [place] [address] Dusty Perry MD [address] [place] [address] 07/03/2025 10:40 AM EDT Office Visit Family Medicine [address] [place] [phone] Madison Montelongo MD [address] [place] [address] [place] [address] Health Maintenance Due Date Last Done Comments [...] the patient have Health Care Power of Locomotive Crane Operator? No * Full Code Date Activated [...] Power of Attor bob? No Care Teams Well Blower Relationship Specialty Start Date End Date Marito Echeverria CRNP [address] [place] [address] [place] [address] PCP - General Nurse Practitioner 09/10/24 documented as of this encounter
--- OUTSIDE RECORDS SUMMARY | 2024-10-03 13:59 | External Medical Summary | Summary of Care ---
Author Name Unknown Organization [facility] Address [address] [place] [address] Phone [phone] Care Team Providers Care Locksmith Name Role Phone Madison Montelongo MD Primary Care Provide r Reason for Visit * Reason Comments Outpatient Testing Encounter Details Date Type Department Care Team (Late st Contact Info) Description 09/10/2024 1:20 PM EST Laboratory Laboratory [address] [place] [phone] [place] [address] AIHA (autoimmune hemolytic anemia) (HCC) Allergies Active Allergy Reactions Criticality Noted Date Comments Sulfamethoxazole-Tri methoprim 03/21/2018 Penicillins 12/18/2012 Father said he was told not to give pt penicillin. Rituximab Abdominal pain,Flushing 09/30/2010 See clinic notes Ceftriaxone Sodium Hives Medium 09/13/2010 30 minutes post infusion Sulfa Antibiotics Hematologic complications (Please comment) 09/07/2008 Concerns of bactrim association with AIHA documented as of this encounter (statuses as of 09/10/2024) Medications TYLENOL 8 HOUR 650 MG PO [...] meds). 90 Tablet 3 4 Active Nystatin 868624 UNIT/GM External Cream Apply topically to affected [...] as of this encounter (statuses as of 09/10/2024) Active Problems Problem Noted Date Diagnosed Date [...] as of this encounter (statuses as of 09/10/2024) Resolved Problems Problem Noted Date Diagnosed Date [...] as of this encounter (statuses as of 09/10/2024) Immunizations Name Administration Dates Next Due DTaP [...] 11/11/2024 8:40 AM EDT Telemedicine Pediatric Hematology/Oncology, [place] [address] [place] [address] Dusty Perry MD [address] [place] [address] 07/03/2025 10:40 AM EDT Office Visit Family Medicine [address] [phone] Madison Montelongo MD [address] [place] [address] [place] [address] Pending Results Name Type Priority Associated Diagnoses Date /Time CBC WITH WBC DIFFERENTIAL Lab Routine AIHA (autoimmune hemolytic anemia) ([facility]) 09/10/2024 1:14 PM EST RETICULOCYTE PANEL Lab Routine AIHA (autoimmune hemolytic anemia) ([facility]) 09/10/2024 1:14 PM EST LD Lab Routine AIHA (autoimmune hemolytic anemia) ([facility]) 09/10/2024 1:14 PM EST CBC Lab Routine AIHA (autoimmune hemolytic anemia) ([facility]) 09/10/2024 1:14 PM EST DIFFERENTIAL, AUTOMATED Lab Routine AIHA (autoimmune hemolytic anemia) ([facility]) 09/10/2024 1:14 PM EST Health Maintenance Due Date Last Done Comments [...] (autoimmune hemolytic anemia) (HCC) Autoimmune hemolytic anemias documented in this encounter Advance Directives * Full Code (Latest Code Status on File) Date Activated Date Inactivated Comments 03/28/2023 8:16 PM 04/01/2023 2:17 PM Question Answer Comments Discussion of Advance Direct comfort occurred with: Not Discussed due to patient's condition Does the patient have a Living Will? No Does the patient have Health Care Power of Pulp Roller? No * Full Code Date Activated Date [...] Power of Attor bob? No Care Teams Locksmith Relationship Specialty Start Date End Date Madison Montelongo MD [address] [place] [address] [place] [address] PCP - General Family Medicine 06/11/15 documented as of this encounter
--- OUTSIDE RECORDS SUMMARY | 2024-10-03 13:59 | External Medical Summary ---
Author Name Unknown Address Unknown Organization K01:LABORATORY [facility] - [facility] [address] [facility] [address] Laboratory Report Ordering Provider Test Date Status ARUN PALMER 09/10/2024 13:14:14 Final Observation Date Value Abnormality Reference (Units ) Status WBC, Total 09/10/2024 13:14:14 4.95 4.00-10.80 (K/uL) Final RBC 09/10/2024 13:14:14 2.28 3.85-5.15 (M/uL) Final Hemoglobin 09/10/2024 13:14:14 10.1 Below low normal 12.0-15.3 (g/dL) Final HCT 09/10/2024 13:14:14 27.4 Below low normal 36.0-45.2 (%) Final MCV 09/10/2024 13:14:14 120.2 81.5-97.5 (fL) Final MCH 09/10/2024 13:14:14 44.3 27.0-34.0 (pg) Final MCHC 09/10/2024 13:14:14 36.9 32.0-36.0 (g/dL) Final RDW 09/10/2024 13:14:14 18.9 11.5-15.5 (%) Final Platelets 09/10/2024 13:14:14 414 Above high normal 140-400 (K/uL) Final MPV 09/10/2024 13:14:14 9.7 6.6-11.1 (fL) Final Nucleated erythrocytes/100 leukocytes [Ratio] in Blood by Automated count 09/10/2024 13:14:14 0 <=0 (/100 WBCs) Final Performing Location [facility]ORY [facility] [address] [facility] [address]
--- OUTSIDE RECORDS SUMMARY | 2024-10-03 13:59 | External Medical Summary ---
Author Name Unknown Address Unknown Organization K01:LABORATORY C - [address] [place] [address] Laboratory Report Ordering Provider Test Date Status ARUN PALMER 10/02/2024 15:46:44 Final Observation Date Value Abnormality Reference (Units ) Status LDH 10/02/2024 15:46:44 499 Above high normal <= 250 (U/L) Final Results may be falsely eleva madai due to hemolysis. Performing Location LABORATORY [facility] - [address] [place] [address]
--- OUTSIDE RECORDS SUMMARY | 2024-10-03 13:59 | External Medical Summary | Summary of Care ---
Author Name Unknown Organization [facility] Address [address] [place] [address] Phone [phone] Care Team Providers Care Applications Development Analyst Name Role Phone Madison Montelongo MD Primary Care Provide r Encounter Details Date Type Department Care Team (Late st Contact Info) Description 09/08/2024 Orders Only Pediatric Hematology/Oncology, [place] [address] [place] [address] Alejandra Fung MD [address] [place] [address] AIHA (autoimmune hemolytic anemia) (HCC)* [...] as of this encounter (statuses as of 09/08/2024) Medications TYLENOL 8 HOUR 650 MG PO [...] meds). 90 Tablet 3 4 Active Nystatin 555091 UNIT/GM External Cream Apply topically to affected [...] as of this encounter (statuses as of 09/08/2024) Active Problems Problem Noted Date Diagnosed Date [...] as of this encounter (statuses as of 09/08/2024) Resolved Problems Problem Noted Date Diagnosed Date [...] as of this encounter (statuses as of 09/08/2024) Immunizations Name Administration Dates Next Due DTaP Dipth/Tet/Acell Pertussis (Infanrix), Peds 01/18/2007,05/12/2004,2003,2002,2003 HIB PRP-T, 4 Dose, PF, IM (H iberix, ActHib) 05/12/2004,2003,2003,2002 Hepatitis A, Ped/Adol., 18 y ear and below, 2-Dose 01/21/2008,01/18/2007 Hepatitis B, 0-19 yrs 2003,2003,01/01 IPV - Polio Virus Vaccine (Inact) 2006,2003,2003,2002 MMR - Measles/Mumps/Rubella Vaccine 01/18/2007,0 01/18/2004 Pneumococcal Conjugate Vacci ne, 7 Valent 07/19/2004,2003,2003,07/09/ 2003 Seasonal Influenza Vac., MDV , IM, 0.5 [...] 11/11/2024 8:40 AM EDT Telemedicine Pediatric Hematology/Oncology, [place] [address] [place] [address] Dusty Perry MD [address] [place] [address] 07/03/2025 10:40 AM EDT Office Visit Family Medicine [address] [phone] Madison Montelongo MD [address] [place] [address] [place] [address] Scheduled Orders Name Type Priority Associated Diagnoses Orde r Schedule CBC WITH WBC DIFFERENTIAL Lab Routine AIHA (autoimmune hemolytic anemia) (HCC) Every Month for 3 Occurrences starting 09/08/2024 until 09/08/2025 RETICULOCYTE PANEL Lab Routine AIHA (autoimmune hemolytic anemia) (HCC) Every Month for 3 Occurrences starting 09/08/2024 until 09/08/2025 LD Lab Routine AIHA (autoimmune hemolytic anemia) (HCC) Every Month for 3 Occurrences starting 09/08/2024 until 09/08/2025 Health Maintenance Due Date Last Done Comments [...] the patient have Health Care Power of [employer] Dean? No * Full Code Date Activated Date [...] Power of Attor bob? No Care Teams Applications Development Analyst Relationship Specialty Start Date End Date Jayda, Doriann Adler, MD [address] [place] [address] [place] [phone] PCP - General Family Medicine 06/11/15 documented as of this encounter
--- OUTSIDE RECORDS SUMMARY | 2024-10-03 13:59 | External Medical Summary ---
Author Name Unknown Address Unknown Organization K01:LABORATORY [facility] - [address] [facility] [address] Laboratory Report Ordering Provider Test Date Status ARUN PALMER 10/02/2024 15:46:44 Final Observation Date Value Abnormality Reference (Units ) Status SYNC LEUKOCYTES IN BLOOD BY AUTOMATED COUNT 10/02/2024 15:46:44 7.24 4.00-10.80 (K/uL) Final Neutrophils/100 leukocytes in Blood by Manual count 10/02/2024 15:46:44 70.0 40.0-75.0 (%) Final Lymphocytes/100 leukocytes in Blood by Manual count 10/02/2024 15:46:44 18.0 18.0-42.0 (%) Final Monocytes/100 leukocytes in Blood by Manual count 10/02/2024 15:46:44 5.0 1.0-11.0 (%) Final Eosinophils/100 leukocytes in Blood by Manual count 10/02/2024 15:46:44 6.0 0.0-6.0 (%) Final Basophils/100 leukocytes in Blood by Manual count 10/02/2024 15:46:44 1.0 0.0-2.0 (%) Final Neutrophils [#/volume] in Blood by Manual count 10/02/2024 15:46:44 5.07 1.80-7.70 (K/uL) Final Lymphocytes [#/volume] in Blood by Manual count 10/02/2024 15:46:44 1.30 1.00-4.80 (K/uL) Final Monocytes [#/volume] in Blood by Manual count 10/02/2024 15:46:44 0.36 0.00-1.10 (K/uL) Final Eosinophils [#/volume] in Blood by Manual count 10/02/2024 15:46:44 0.43 0.00-0.70 (K/uL) Final Basophils [#/volume] in Blood by Manual count 10/02/2024 15:46:44 0.07 0.00-0.20 (K/uL) Final Polychromasia [Presence] in Blood by Light microscopy 10/02/2024 15:46:44 Moderate Abnormal None Seen Final Performing Location LABORATORY [facility] - [address] [facility] [address]
--- OUTSIDE RECORDS SUMMARY | 2024-10-03 13:59 | External Medical Summary | Summary of Care ---
Author Name Unknown Organization [facility] Address [address] [place] [address] Phone [phone] Care Team Providers Care Miter Grinder Operator Name Role Phone Marito Echeverriae CHIDI Primary Care Provider Encounter Details Date Type Department Care Team (Late st Contact Info) Description 09/29/2024 Orders Only Outcomes Research Department [address] [place] [address] Ashly Bailey CHRA [employer] Research Other*[id number] Allergies Active Allergy Reactions Criticality Noted Date Comments Sulfamethoxazole-Tri methoprim 03/21/2018 Penicillins 12/18/2012 Father said he was told not to give pt penicillin. Rituximab Abdominal pain,Flushing 09/30/2010 See clinic notes Ceftriaxone Sodium Hives Medium 09/13/2010 30 minutes post infusion Sulfa Antibiotics Hematologic complications (Please comment) 09/07/2008 Concerns of bactrim association with AIHA documented as of this encounter (statuses as of 09/29/2024) Medications TYLENOL 8 HOUR 650 MG PO [...] meds). 90 Tablet 3 4 Active Nystatin 594580 UNIT/GM External Cream Apply topically to affected [...] as of this encounter (statuses as of 09/29/2024) Active Problems Problem Noted Date Diagnosed Date [...] as of this encounter (statuses as of 09/29/2024) Resolved Problems Problem Noted Date Diagnosed Date Resolved Date Current moderate episode of major depressive disorder without prior episode 03/25/2020 2 Need for pneumocystis prophylaxis 01/27/2016 02/01/2018 Need for pneumocystis prophylaxis 05/12/2015 08/07/2015 Internal tibial torsion 12/02/2013 09/0 05/2015 Ankle weakness 12/02/2013 05/12/2015 Genu valgum 12/02/2013 05/12/2015 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 (11/29/2011): Due to IVIG Hypogammaglobulinemia 09/08/20092009 Acute sinusitis 08/19/2009 09/08/2009 Autoimmune hemolytic anemia 09/22/2007 08/07/2015 Seizure disorder, complex pa rtial, without intractable epilepsy 06/25/2007 09/08/2009 documented as of this encounter (statuses as of 09/29/2024) Immunizations Name Administration Dates Next Due DTaP [...] 11/11/2024 8:40 AM EDT Telemedicine Pediatric Hematology/Oncology, [place] [address] [place] [address] Dusty Perry MD [address] [place] [address] 07/03/2025 10:40 AM EDT Office Visit [address] [place] [place] [address] Madison Montelongo MD [address] [place] [address] [place] [address] Scheduled Orders Name Type Priority Associated Diagnoses Orde r Schedule MYCODE SUBSEQUENT ADULT Lab Routine [employer] Research Other*[id number] Every 6 Months for 2 Occurrences starting 09/29/2024 until 10/19/2025 Health Maintenance Due Date Last Done Comments [...] as of this encounter Visit Diagnoses Diagnosis My[facility] Research Other*[id number] documented in this encounter Advance Directives * Full Code (Latest Code Status on File) Date Activated Date Inactivated Comments 03/28/2023 8:16 PM 04/01/2023 2:17 PM Question Answer Comments Discussion of Advance Direct comfort occurred with: Not Discussed due to patient's condition Does the patient have a Living Will? No Does the patient have Health Care Power of Motorcycle Fabricator? No * Full Code Date Activated Date Inactivated Comments 12/25/2014 2:53 PM 12/30/2014 4:31 PM This order r eflects the patients wishes and were consensually agreed upon. Question Answer Comments Discussion of Advance Directives occurred with: Not Discussed Does the patient have a Living Will? No Does the patient have Health Care Power of Attor obb? No * Full Code Date Activated Date [...] patient have Health Care Power of Attor bbo? No * Full Code Date Activated Date Inactivated Comments 11/27/2011 6:13 PM 11/27/2011 7:32 PM This order r eflects the patients wishes and were consensually agreed upon. Question Answer Comments Discussion of Advance Directives occurred with: Not Discussed Does the patient have a Living Will? No Does the patient have Health Care Power of Attor bob? No Care Teams Miter Grinder Operator Relationship Specialty Start Date End Date Marito Echeverria CRNP [address] [place] [address] [place] [address] PCP - General Nurse Practitioner 09/10/24 documented as of this encounter
--- OUTSIDE RECORDS SUMMARY | 2024-10-03 13:59 | External Medical Summary ---
Author Name Unknown Address Unknown Organization K01:LABORATORY C - [address] [facility] [address] Laboratory Report Ordering Provider Test Date Status SHANI PALMERSUPRIYA 10/02/2024 15:46:44 Final Observation Date Value Abnormality Reference (Units ) Status Retic, % (auto) 10/02/2024 15:46:44 >17.00 Above high normal 0.80-1.90 (%) Final Reticulocytes, Absolute 10/02/2024 15:46:44 Final No result - reticulocyte renee ue above or below level of detection. Reticulocyte fraction, immature 10/02/2024 15:46:44 Final No result - reticulocyte renee ue above or below level of detection. Reticulocyte HGB 10/02/2024 15:46:44 Final No result - reticulocyte renee ue above or below level of detection. Performing Location [facility] [place] [address] [facility] [address]
--- OUTSIDE RECORDS SUMMARY | 2024-10-03 13:59 | External Medical Summary ---
Author Name Unknown Address Unknown Organization [id number]:[facility] [address] [address] Laboratory Report Ordering Provider Test Date Status ARUN PALMER 09/10/2024 13:14:14 Final Observation Date Value Abnormality Reference (Units ) Status LDH 09/10/2024 13:14:14 254 Above high normal <= 250 (U/L) Final Performing Location [facility] - [address] [place] [address]
--- OUTSIDE RECORDS SUMMARY | 2024-10-03 13:59 | External Medical Summary ---
Author Name Unknown Address Unknown Organization [id number]:[facility] [place] [address] [facility] [address] Laboratory Report Ordering Provider Test Date Status ARUN PALMER 09/10/2024 13:14:14 Final Observation Date Value Abnormality Reference (Units ) Status SYNC LEUKOCYTES IN BLOOD BY AUTOMATED COUNT 09/10/2024 13:14:14 4.95 4.00-10.80 (K/uL) Final Segs 09/10/2024 13:14:14 62.6 40.0-75.0 (%) Final Lymphs % 09/10/2024 13:14:14 20.2 18.0-42.0 (%) Final Monos 09/10/2024 13:14:14 7.9 1.0-11.0 (%) Final Eosinophils 09/10/2024 13:14:14 7.5 Above high normal 0.0-6.0 (%) Final Basos 09/10/2024 13:14:14 0.4 0.0-2.0 (%) Final Immature Granulocyte, Percent 09/10/2024 13:14:14 1.4 0.0-2.0 (%) Final Absolute Segs 09/10/2024 13:14:14 3.10 1.80-7.70 (K/uL) Final Lymphs, absolute 09/10/2024 13:14:14 1.00 1.00-4.80 (K/ul) Final Monos, Abs 09/10/2024 13:14:14 0.39 0.00-1.10 (K/uL) Final Eos, Abs 09/10/2024 13:14:14 0.37 0.00-0.70 (K/uL) Final Basos, Abs 09/10/2024 13:14:14 0.02 0.00-0.20 (K/uL) Final Immature Granulocytes, Number 09/10/2024 13:14:14 0.07 0.00-0.20 (K/uL) Final Performing Location [facility] [place] [address] [facility] [address]
--- OUTSIDE RECORDS SUMMARY | 2024-10-03 13:59 | External Medical Summary ---
Author Name Unknown Address Unknown Organization [id number]:[facility]ORY [facility] [place] - [address] [facility] [address] Laboratory Report Ordering Provider Test Date Status ARUN PALMER 09/10/2024 13:14:14 Final Observation Date Value Abnormality Reference (Units ) Status Retic, % (auto) 09/10/2024 13:14:14 11.12 Above high normal 0.80-1.90 (%) Final Reticulocytes, Absolute 09/10/2024 13:14:14 341.0 Above high normal 31.3-100.1 (K/uL) Final Run on dilution.
Reticulocyte fraction, immature 09/10/2024 13:14:14 26.2 Above high normal 2.5-20.6 (%) Final Reticulocyte HGB 09/10/2024 13:14:14 31.2 29. 7-37.4 (pg) Final Performing Location [facility] [place] [facility] [address] [facility] [address] [facility] [address]
--- OUTSIDE RECORDS SUMMARY | 2024-10-03 14:00 | External Medical Summary ---
Author Name Unknown Address Unknown Organization [id number]:LABORATORY [facility] [place] - [facility] [address] [facility] [place] [address] Laboratory Report Ordering Provider Test Date Status ARUN PALMER 08/25/2024 07:40:16 Final Observation Date Value Abnormality Reference (Units ) Status WBC, Total 08/25/2024 07:40:16 11.34 Above high normal 4.00-10.80 (K/uL) Final RBC 08/25/2024 07:40:16 2.38 3.85-5.15 (M/uL) Final Hemoglobin 08/25/2024 07:40:16 9.7 Below low normal 12.0-15.3 (g/dL) Final HCT 08/25/2024 07:40:16 30.2 Below low normal 36.0-45.2 (%) Final MCV 08/25/2024 07:40:16 126.9 81.5-97.5 (fL) Final MCH 08/25/2024 07:40:16 40.8 27.0-34.0 (pg) Final MCHC 08/25/2024 07:40:16 32.1 32.0-36.0 (g/dL) Final RDW 08/25/2024 07:40:16 23.9 11.5-15.5 (%) Final Platelets 08/25/2024 07:40:16 402 Above high normal 140-400 (K/uL) Final MPV 08/25/2024 07:40:16 9.9 6.6-11.1 (fL) Final Nucleated erythrocytes/100 leukocytes [Ratio] in Blood by Automated count 08/25/2024 07:40:16 2 Above high normal <=0 (/100 WBCs) Final Performing Location LABORATORY [facility] [place] - [address] [place] [address]
--- OUTSIDE RECORDS SUMMARY | 2024-10-03 14:00 | External Medical Summary | Summary of Care ---
Author Name Unknown Organization [facility] Address [address] [place] [address] Phone [phone] Care Team Providers Care Funeral Planner Name Role Phone Madison Montelongo MD Primary Care Provide r Reason for Visit * Reason Onset Date Comments Order Request 08/29/2024 Encounter Details Date Type Department Care Team (Late st Contact Info) Description 08/29/2024 Telephone Pediatric Hematology/Oncology, [place] [address] [place] [address] Dusty Perry MD [address] [place] [address] Order Request Allergies Active Allergy Reactions Criticality Noted Date Comments Sulfamethoxazole-Tri methoprim 03/21/2018 Penicillins 12/18/2012 Father said he was told not to give pt penicillin. Rituximab Abdominal pain,Flushing 09/30/2010 See clinic notes Ceftriaxone Sodium Hives Medium 09/13/2010 30 minutes post infusion Sulfa Antibiotics Hematologic complications (Please comment) 09/07/2008 Concerns of bactrim association with AIHA documented as of this encounter (statuses as of 08/29/2024) Medications TYLENOL 8 HOUR 650 MG PO [...] meds). 90 Tablet 3 4 Active Nystatin 852102 UNIT/GM External Cream Apply topically to affected [...] as of this encounter (statuses as of 08/29/2024) Active Problems Problem Noted Date Diagnosed Date [...] as of this encounter (statuses as of 08/29/2024) Resolved Problems Problem Noted Date Diagnosed Date [...] as of this encounter (statuses as of 08/29/2024) Immunizations Name Administration Dates Next Due DTaP [...] Preeti Tellez RN documented in this encounter Miscellaneous Notes * Telephone Encounter - Noel Pimentel OSA - 08/29/2024 8:09 AM EST Mom called in asking for standing lab orders to be put in for Christine. She would like to get them done to day before the office closes and she would also like a message through [employer] when the orders are put in documented in this encounter Plan of Treatment Upcoming Encounters Date Type Department Care Team (Late st Contact Info) Description 11/11/2024 8:40 AM EDT Telemedicine Pediatric Hematology/Oncology, [place] [address] [place] [address] Dusty Perry MD [address] [place] [address] 07/03/2025 10:40 AM EDT Office Visit Family Medicine [address] [phone] Madison Montelongo MD [address] [place] [address] [place] [address] Health Maintenance Due Date Last Done Comments [...] , 08/01/2022, 03/25/2020, Additional history exists TSH 07/24/2025 07/24/2024, 11/04/2024, 05/13/2024, Additional history exists Hepatitis B Vaccine Completed [...] the patient have Health Care Power of Union Carpenter? No * Full Code Date Activated Date [...] Power of Attor bob? No Care Teams Funeral Planner Relationship Specialty Start Date End Date Madison Montelongo MD [address] [place] [address] [place] [id number] PCP - General Family Medicine 06/11/15 documented as of this encounter
--- OUTSIDE RECORDS SUMMARY | 2024-10-03 14:00 | External Medical Summary | Summary of Care ---
Author Name Unknown Organization [facility] Address [address] [place] [place] [address] Phone [phone] Care Team Providers Care Mine Surveyor Name Role Phone Madison Montelongo MD Primary Care Provide r Encounter Details Date Type Department Care Team (Late st Contact Info) Description 09/01/2024 Orders Only Family Medicine [address] [phone] Madison Montelongo MD [address] [place] [address] [place] [phone] Allergies Active Allergy Reactions Criticality Noted Date [...] meds). 90 Tablet 3 4 Active Nystatin 751556 UNIT/GM External Cream Apply topically to affected [...] 11/11/2024 8:40 AM EDT Telemedicine Pediatric Hematology/Oncology, [place] [address] [place] [address] Dusty Perry MD [address] [place] [address] 07/03/2025 10:40 AM EDT Office Visit Family Medicine [address] [phone] Madison Montelongo MD [address] [place] [address] [place] [address] Health Maintenance Due Date Last Done Comments [...] Name Priority Date/Time Associated Diagnosis Comments OUTSIDE LAB-CORONAVIRUS (COVID-19) Routine 08/19/2024 CHEMISTRY-OUTSIDE Routine 08/19/2024 TSH Routine 08/19/2024 documented in this encounter Results * OUTSIDE LAB-CORONAVIRUS (COVID-19) (08/19/2024) Pathologist [facility] [id number] DE LAB NOT DETECTED NOT DETECTED OUTSIDE LAB (SEE SCANNED REPORT) 08/19/2024 Ashly Dunbar PA-C LABORATORY [facility] Result Performing Organization Address City/[facility]/ZIP Co de Phone Number OUTSIDE LAB (SEE SCANNED REPORT) * (ABNORMAL) TSH (08/19/2024) [facility] TSH - OUTSIDE LAB 14.487(A) 0.300 - 4.500 UIU/ML OUTSIDE LAB (SEE SCANNED REPORT) Blood Venous blood specimen / Unknown 08/19/2024 Ashly Dunbar PA-C LAB BLOOD ORDERABLES Final Result Performing Organization Address City/[facility]/ZIP Co de Phone Number OUTSIDE LAB (SEE SCANNED REPORT) * (ABNORMAL) CHEMISTRY-OUTSIDE (08/19/2024) [facility] Not all results display below - see scan for full detail OUTSIDE LAB (SEE SCANNED REPORT) Comment:[facility] ED-CBCD, CMP,MG ,TROP I HS, LIPASE,FREE T4 CREATININE 0.59(A) 0.6 - 1.2 MG/DL OUTSIDE LAB (SEE SCANNED REPORT) EGFR 131.41 >=60 ML/MIN OUTSIDE LAB (SEE SCANNED REPORT) POTASSIUM 3.5 3.5 - 5.1 MMOL OUTSIDE LAB (SEE SCANNED REPORT) GLUCOSE 96 70 - 99 MG/DL OUTSIDE LAB (SEE SCANNED REPORT) HOURS FASTING OUTSID E LAB (SEE SCANNED REPORT) TRIGLYCERIDES-OUT SIDE LAB OUTSIDE LAB (SEE SCANNED REPORT) CHOLESTEROL-OUTSI DE LAB OUTSIDE LAB (SEE SCANNED REPORT) HDL-OUTSIDE LAB OUTS JUSTO LAB (SEE SCANNED REPORT) CHOL/HDL RATIO-OUTSIDE LAB OUTSIDE LA B (SEE SCANNED REPORT) LDL (CALCULATED)-OUTS JUSTO LAB OUTSIDE LAB (SEE SCANNED REPORT) LDL (DIRECT MEASURE)-OUTSIDE LAB OUTSIDE LAB (SEE SCANNED REPORT) HEMOGLOBIN, W1W-XHRINMV LAB OUTSIDE LAB (SEE SCANNED REPORT) PHOSPHORUS-OUTSID E LAB OUTSIDE LAB (SEE SCANNED REPORT) PTH-OUTSIDE LAB OUTS JUSTO LAB (SEE SCANNED REPORT) MICROALBUMIN RATIO-OUTSIDE LAB OUTSIDE LA B (SEE SCANNED REPORT) PROTEIN, UA-OUTSIDE LAB OUTSIDE LAB (SEE SCANNED REPORT) HGB 8.9(A) 12 - 16 G/DO OUTSIDE LAB (SEE SCANNED REPORT) 08/19/2024 us Ashly Dunbar PA-C LABORATORY [facility] Result OUTSIDE LAB (SEE SCANNED REPORT) documented in this encounter Advance Directives * Full Code (Latest Code Status on File) Date Activated Date Inactivated Comments 03/28/2023 8:16 PM 04/01/2023 2:17 PM Question Answer Comments Discussion of Advance Direct comfort occurred with: Not Discussed due to patient's condition Does the patient have a Living Will? No Does the patient have Health Care Power of Senior Market Intelligence Consultant? No * Full Code Date Activated Date [...] Power of Attor bob? No Care Teams Mine Surveyor Relationship Specialty Start Date End Date Madison Montelongo MD [address] [place] [address] [place] [phone] PCP - General Family Medicine 06/11/15 documented as of this encounter
--- OUTSIDE RECORDS SUMMARY | 2024-10-03 14:00 | External Medical Summary ---
Author Name Unknown Address Unknown Organization K01:[facility] - [address] [place] [address] Laboratory Report Ordering Provider Test Date Status ARUN PALMER 08/25/2024 07:40:16 Final Observation Date Value Abnormality Reference (Units ) Status LDH 08/25/2024 07:40:16 426 Above high normal <= 250 (U/L) Final Performing Location [facility] - [address] [place] [address]
--- OUTSIDE RECORDS SUMMARY | 2024-10-03 14:00 | External Medical Summary ---
Author Name Unknown Address Unknown Organization K01:[facility] [place] [facility] [address] [facility] [address] [facility] [address] Laboratory Report Ordering Provider Test Date Status ARUN PALMER 08/25/2024 07:40:16 Final Observation Date Value Abnormality Reference (Units ) Status Retic, % (auto) 08/25/2024 07:40:16 15.66 Above high normal 0.80-1.90 (%) Final Reticulocytes, Absolute 08/25/2024 07:40:16 419.0 Above high normal 31.3-100.1 (K/uL) Final Run on dilution. Reticulocyte fraction, immature 08/25/2024 07:40:16 45.4 Above high normal 2.5-20.6 (%) Final Reticulocyte HGB 08/25/2024 07:40:16 33.9 29. 7-37.4 (pg) Final Performing Location [facility] [place] [address] [facility] [address]
--- OUTSIDE RECORDS SUMMARY | 2024-10-03 14:00 | External Medical Summary | Summary of Care ---
Author Name Unknown Organization [facility] Address [address] [facility] [place] [address] Phone [phone] Care Team Providers Care Pulp Bleacher Name Role Phone Madison Montelongo MD Primary Care Provide r Reason for Visit * Reason Comments Outpatient Testing Encounter Details Date Type Department Care Team (Late st Contact Info) Description 08/25/2024 7:50 AM EST Laboratory Laboratory [address] [place] [phone] [place] [address] AIHA (autoimmune hemolytic anemia) (HCC) Allergies Active [...] as of this encounter (statuses as of 08/25/2024) Medications TYLENOL 8 HOUR 650 MG PO [...] meds). 90 Tablet 3 4 Active Nystatin 379849 UNIT/GM External Cream Apply topically to affected [...] affected area. 60 g 5 4 Active predniSONE 20 MG Oral Tablet (Deltasone)Indicat ions:Viral rash Take 2 Tablets by mouth in the morning for 5 days. 10 Tablet 4 08/26/20 24 Active documented as of this encounter (statuses as of 08/25/2024) Active Problems Problem Noted Date Diagnosed Date [...] as of this encounter (statuses as of 08/25/2024) Resolved Problems Problem Noted Date Diagnosed Date [...] as of this encounter (statuses as of 08/25/2024) Immunizations Name Administration Dates Next Due DTaP [...] 11/11/2024 8:40 AM EDT Telemedicine Pediatric Hematology/Oncology, [place] [address] [place] [address] Dusty Perry MD [address] [place] [address] 07/03/2025 10:40 AM EDT Office Visit Family [address] [phone] Madison Montelongo MD [address] [place] [address] [place] [address] Pending Results Name Type Priority Associated Diagnoses Date /Time CBC WITH WBC DIFFERENTIAL Lab Routine AIHA (autoimmune hemolytic anemia) ([facility]) 08/25/2024 7:40 AM EST RETICULOCYTE PANEL Lab Routine AIHA (autoimmune hemolytic anemia) ([facility]) 08/25/2024 7:40 AM EST LD Lab Routine AIHA (autoimmune hemolytic anemia) ([facility]) 08/25/2024 7:40 AM EST CBC Lab Routine AIHA (autoimmune hemolytic anemia) ([facility]) 08/25/2024 7:40 AM EST DIFFERENTIAL, AUTOMATED Lab Routine AIHA (autoimmune hemolytic anemia) ([facility]) 08/25/2024 7:40 AM EST Health Maintenance Due Date Last Done Comments COVID-19 Vaccine (#1) 01/10/2008 DTap/Tdap Vaccines (6 - Tdap) 2014 01/18/2007, 05/12/2004, 2003, Additional history exists HPV (Gardasil) Vaccine (1 - 3-dose series) 2018 Depression Monitoring 11/16/2019 11/15/2018 Pneumococcal Vaccine: Pediatrics (0 to 5 Years) and At-Risk Patients (6 to 64 Years) (1 of 2 - PCV) 2022 Pap Smear 01/10/2024 Gonorrhea / Chlamydia Screen 03/29/2024 03/29/2023 Influenza Vaccine (FLU shot) (#1) 2024 08/19/2010, 05/24/2009 Yearly Wellness Visit 06/02/2025 06/02/2024 , 08/01/2022, 03/25/2020, Additional history exists TSH 07/24/2025 07/24/2024, 1104/2024, 05/13/2024, Additional history exists Hepatitis B Vaccine [...] the patient have Health Care Power of Audio Video Mechanic? No * Full Code Date Activated Date [...] Power of Attor bob? No Care Teams Pulp Bleacher Relationship Specialty Start Date End Date Madison Montelongo MD [address] [place] [address] [place] [phone] PCP - General Family Medicine 06/11/15 documented as of this encounter
--- OUTSIDE RECORDS SUMMARY | 2024-10-03 14:00 | External Medical Summary ---
Author Name Unknown Address Unknown Organization K01:LABORATORY [facility] - [address] [facility] [address] Laboratory Report Ordering Provider Test Date Status SPENCERSHANI LOERASUPRIYA 08/25/2024 07:40:16 Final Observation Date Value Abnormality Reference (Units ) Status SYNC LEUKOCYTES IN BLOOD BY AUTOMATED COUNT 08/25/2024 07:40:16 11.34 Above high normal 4.00-10.80 (K/uL) Final Neutrophils/100 leukocytes in Blood by Manual count 08/25/2024 07:40:16 62.0 40.0-75.0 (%) Final Lymphocytes/100 leukocytes in Blood by Manual count 08/25/2024 07:40:16 11.0 Below low normal 18.0-42.0 (%) Final Monocytes/100 leukocytes in Blood by Manual count 08/25/2024 07:40:16 2.0 1.0-11.0 (%) Final Eosinophils/100 leukocytes in Blood by Manual count 08/25/2024 07:40:16 19.0 Above high normal 0.0-6.0 (%) Final Metamyelocytes/100 leukocytes in Blood by Manual count 08/25/2024 07:40:16 6.0 Above high normal <=0.0 (%) Final Neutrophils [#/volume] in Blood by Manual count 08/25/2024 07:40:16 7.03 1.80-7.70 (K/uL) Final Lymphocytes [#/volume] in Blood by Manual count 08/25/2024 07:40:16 1.25 1.00-4.80 (K/uL) Final Monocytes [#/volume] in Blood by Manual count 08/25/2024 07:40:16 0.23 0.00-1.10 (K/uL) Final Eosinophils [#/volume] in Blood by Manual count 08/25/2024 07:40:16 2.15 Above high normal 0.00-0.70 (K/uL) Final Metamyelocytes [#/volume] in Blood by Manual count 08/25/2024 07:40:16 0.68 Above high normal <=0.00 (K/uL) Final Performing Location [place] [facility] [place] [address] [place] [address]
[2024-10-03] MEDS: predniSONE 50 MG TAB PO SCH (20:54)
[2024-10-04 07:27] LABS: BUN Creatinine Ratio 21.3 (10-20); Calcium 9.2 mg/dl (8.6-10.3); Creatinine Clr Calc Pharmacy 201.6 ml/min
--- NOTE | 2024-10-04 08:19 | Hospitalist Progress Note ---
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 Fung, patient's pediatric supervisor laboratory animal facility.: Continue steroids dose until outpatient follow-up labs after discharge in a few days, she will determin e when to taper. -Continue sirolimus 10/04/2024 - Discussed w/ pt , her mom over the phone and RN at the bedside - pt reports she is seeing Dr. Ambrocio in November and that usually she is on IV meds when she has these episodes - will consult with inpt hematology, as pt is currently on PO prednisone 50 mg bid Hypothyroidism -Continue levothyroxine 137 mcg daily Borderline Personality disorder Anxiety with depression -Continue Abilify 10 mg daily, BuSpar 15 mg twice daily, sertraline 100 mg daily. Hold trazodone 100 mg HS prn due to fatigue DVT ppx: Ambulatory FEN/GI: Regular diet CODE: Full code Dispo: From home, likely to remain in the hospital x 1-2 days Admission and Anticipated Discharge Date Admission Date: October 03, 2024 Subjective Pt seen in follow up of hemolytic anemia Currently laying in bed in bed in [facility] Denies any chest pain, shortness of breath, dizziness. No abd. pain, n/v Discussed w/ pt , her mom over the phone and RN at the bedside - pt reports she is seeing Dr. Ambrocio in November and that usually she is on IV meds when she has these episodes - will consult with inpt hematology, as pt is currently on PO prednisone 50 mg bid Review of Systems Review of Systems: All systems reviewed & are unremarkable except as noted in Subjective Physical Exam Physical Exam: General: awake, alert, no apparent distress, obese BMI 43.6, white female, + pallor Head: Normocephalic, atraumatic ENT: PERRL, EOMI, mucous membranes moist Chest: Clear to auscultation, on room air Cardiac: Regular rate and rhythm, no murmur, no JVD, normal peripheral pulses, good capillary refill Abdominal: NABS x 4 quadrants, soft, nondistended, nontender to palpation, no rebound or guarding Extremities: Normal inspection, no peripheral edema or erythema Psych: Normal mood and affect Neuro: AAO x 3, no facial asymmetry, speech fluent, answers appropriately, moves extremities Results & Data Results & Data Vital Signs (Past 12 Hours) Vital Signs Temp Pulse Pulse Resp BP Pulse Ox O2 Del Method 10/04/24 07:29 36.7 C 88 16 102/58 L 96 Room Air 10/04/24 06:47 104 H 10/04/24 03:00 36.8 C 79 16 96/59 L 98 Room Air 10/03/24 22:50 36.8 C 118 H 20 117/73 96 Room Air 10/03/24 21:57 96 H Laboratory Results 10/04/24 10/03/24 10/03/24 Range/Units 06:40 10:15 10:15 WBC 11.01 H (4.8-10.8) K/ul RBC 1.69 L (4.20-5.40) M/uL Hgb 5.9 L* (12.0-16.0) g/dl Hct 20.2 L* (37.0-47.0) % MCV 119.5 H D (80.0-100.0) fL MCH 34.9 H (25.0-34.0) pg MCHC 29.2 L D (32.0-36.0) g/dL RDW Std Deviation 88.1 H (36.4-46.3) fL RDW Coeff of Jes[place] 21.9 H (11.5-14.5) % Plt Count 320 (130-400) K/uL MPV 9.3 L (9.4-12.4) fL Immature Gran % (Auto) % Neut % (Auto) % Lymph % (Auto) % [place] % (Auto) % Eos % (Auto) % Baso % (Auto) % Reticulocyte % (Auto) (0.50-2.00) % Neut # (Auto) (1.40-6.50) K/uL Lymph # (Auto) (1.20-3.40) K/uL [place] # (Auto) (0.11-0.59) K/uL Eos # (Auto) (0.00-0.50) K/uL Baso # (Auto) (0.00-0.20) K/uL Reticulocyte # Cancelled (0.020-0.100) 10^6/uL Immature Gran # (Auto) 0.47 H (0.01-0.20) K/uL Absolute Nucleated RBC 0.14 H 0.14 H (0.00-0.12) K/uL Nucleated RBC % (auto) 1.3 1.5 % Polychromasia 3+ Anisocytosis Present Peripher Smr Path Cons Cancelled Haptoglobin Pending Sodium 139 137 (136-145) mmol/L Potassium 4.0 3.8 (3.5-5.1) mmol/L Chloride 111 H 108 H (98-107) mmol/L Carbon Dioxide 23 21 (21-32) mmol/L Anion Gap 5 8 (3-11) BUN 10 9 (6-23) mg/dl Creatinine 0.47 L 0.48 L (0.6-1.2) mg/dl Est Cr Clr Drug Dosing 201.6 198.4 ml/min eGFR 138.82 138.11 BUN/Creatinine Ratio 21.3 H 18.8 (10-20) Glucose 128 H 135 H (70-99(Fasting)) mg/dl Calcium 9.2 9.1 (8.6-10.3) mg/dl Total Bilirubin 1.7 H (0.2-1.0) mg/dl Direct Bilirubin 0.2 (0-0.2) mg/dl AST 22 (13-39) U/L ALT 15 (7-52) U/L Alkaline Phosphatase 87 (34-104) U/L Lactate Dehydrogenase 338 H (86-244) U/L Total Protein 8.0 (6.0-8.3) gm/dl Albumin 4.2 (3.4-5.0) gm/dl Globulin 3.8 (2.5-4.0) gm/dl Albumin/Globulin Ratio 1.1 (0.9-2) Blood Type A Positive Antibody Screen POSITIVE A Antibody Identification Pending Antibody ID Referred Pending Antibody ID Comment Cancelled Crossmatch See Detail 10/03/24 10/03/24 Range/Units 10:15 10:15 WBC 9.40 (4.8-10.8) K/ul RBC 1.34 L (4.20-5.40) M/uL Hgb 6.2 L* (12.0-16.0) g/dl Hct 17.4 L* (37.0-47.0) % MCV 129.9 H (80.0-100.0) fL MCH 46.3 H (25.0-34.0) pg MCHC 35.6 (32.0-36.0) g/dL RDW Std Deviation 106.4 H (36.4-46.3) fL RDW Coeff of [place] 27.9 H (11.5-14.5) % Plt Count 416 H (130-400) K/uL MPV 9.4 (9.4-12.4) fL Immature Gran % (Auto) 5.0 % Neut % (Auto) 80.4 % Lymph % (Auto) 11.1 % [place] % (Auto) 1.6 % Eos % (Auto) 1.7 % Baso % (Auto) 0.2 % Reticulocyte % (Auto) Cancelled 26.26 H (0.50-2.00) % Neut # (Auto) 7.56 H (1.40-6.50) K/uL Lymph # (Auto) 1.04 L (1.20-3.40) K/uL [place] # (Auto) 0.15 (0.11-0.59) K/uL Eos # (Auto) 0.16 (0.00-0.50) K/uL Baso # (Auto) 0.02 (0.00-0.20) K/uL Reticulocyte # 0.350 H (0.020-0.100) 10^6/uL Immature Gran # (Auto) (0.01-0.20) K/uL Absolute Nucleated RBC (0.00-0.12) K/uL Nucleated RBC % (auto) % Polychromasia Anisocytosis Peripher Smr Path Cons Haptoglobin Sodium (136-145) mmol/L Potassium (3.5-5.1) mmol/L Chloride (98-107) mmol/L Carbon Dioxide (21-32) mmol/L Anion Gap (3-11) BUN (6-23) mg/dl Creatinine (0.6-1.2) mg/dl Est Cr Clr Drug Dosing ml/min eGFR BUN/Creatinine Ratio (10-20) Glucose (70-99(Fasting)) mg/dl Calcium (8.6-10.3) mg/dl Total Bilirubin (0.2-1.0) mg/dl Direct Bilirubin (0-0.2) mg/dl AST (13-39) U/L ALT (7-52) U/L Alkaline Phosphatase (34-104) U/L Lactate Dehydrogenase (86-244) U/L Total Protein (6.0-8.3) gm/dl Albumin (3.4-5.0) gm/dl Globulin (2.5-4.0) gm/dl Albumin/Globulin Ratio (0.9-2) Blood Type Antibody Screen Antibody Identification Antibody ID Referred Antibody ID Comment Crossmatch Medications Administered Current Inpatient Medications Acetaminophen (Acetaminophen 500 Mg Tab) 1,000 mg PO NOW PRN PRN Reason: Prior to Transfusion Stop: 11/02/24 10:59 Diphenhydramine HCl (Diphenhydramine 50 Mg/Ml Vial) 50 mg IV NOW PRN PRN Reason: Prior to Transfusion Stop: 11/02/24 10:59 Famotidine (Famotidine 20 Mg Tab) 20 mg PO BID [facility] Stop: 11/03/24 08:59 Prednisone (Prednisone 50 Mg Tab) 50 mg PO BID [facility] Stop: 11/02/24 20:59 Last Admin: 10/03/24 20:54 Dose: 50 mg
[2024-10-04 09:02] LABS: Hematocrit (blood only) 20.2 % (37.0-47.0); Hemoglobin 5.9 g/dl (12.0-16.0)
[2024-10-04 09:04] LABS: Mean Corpuscular Hemoglobin 34.9 pg (25.0-34.0); Mean Corpuscular Hgb Conc 29.2 g/dL (32.0-36.0); Mean Corpuscular Volume 119.5 fL (80.0-100.0); Mean Platelet Volume 9.3 fL (9.4-12.4); Nucleated RBC # (auto) 0.14 K/uL (0.00-0.12); Nucleated RBC % (auto) 1.3 %; Platelet Count 320 K/uL (130-400); RDW Coefficient of Variation 21.9 % (11.5-14.5); RDW Standard Deviation 88.1 fL (36.4-46.3); Red Blood Count 1.69 M/uL (4.20-5.40); White Blood Count 11.01 K/ul (4.8-10.8)
[2024-10-04] MEDS: FAMOTIDINE 20 MG TAB PO SCH (09:39)
[2024-10-04] MEDS: SIROLIMUS 0.5 MG TABLET PO SCH (09:39)
--- NOTE | 2024-10-04 14:57 | Oncology Consultation ---
Date of Consultation October 04, 2024 Assessment & Plan (1) Autoimmune hemolytic anemia: 1. Transfuse packed red blood cells repeatedly to maintain a hemoglobin close to 7 g/dL 2. stress dose steroids with Solu-Medrol 1 g/day for 3 days 3. IVIG 1 g/kg for immunosuppression 4. continue sirolimus Plan hematology will continue to follow the patient make appropriate recommendations. Thank you for this interesting hematological consult History of Present Illness Reason for Consultation: Autoimmune hemolytic anemia Attending Physician: Eber Simpson MD History of Present Illness patient is a very pleasant 19-year-old woman who has previously been diagnosed with autoimmune hemolytic anemia, was following our colleagues in [facility], has been on other treatments. Recently was noted to be more anemic when she presented to the ER. She HAD outpatient blood work done which showed hemoglobin of 6.6. Her other medical issues include borderline personality disorder, anxiety disorder. Hematology has been consulted to assist in management of this patient with severe autoimmune hemolytic anemia. She has received blood transfusions while she has been in the hospital. Allergies Allergy/AdvReac Type Severity Reaction Status Date / Time ceftriaxone Allergy Intermediate RASH Verified 08/19/24 09:25 Penicillins Allergy Unknown AUTO Verified 08/19/24 09:25 IMMUNE DISORDER Sulfa (Sulfonamide Allergy Unknown AUTO Verified 08/19/24 09:25 Antibiotics) IMMUNE DISORDER Home Medications Medication Instructions Recorded Confirmed Type calcium carbonate (Tums) 200 mg PO DIRECTED PRN 03/28/23 10/03/24 History HEARTBURN/INDIGESTION cholecalciferol (vitamin D3) 25 25 mcg PO DAILY 03/28/23 10/03/24 History mcg (1,000 unit) capsule (Vitamin D3) sirolimus 2 mg tablet 2 mg PO QAM 05/19/23 10/03/24 History aripiprazole 15 mg tablet 15 mg PO DAILY 08/19/24 10/03/24 History buspirone 15 mg tablet 15 mg PO BID 08/19/24 10/03/24 History levothyroxine 137 mcg tablet 137 mcg PO DAILYBB 08/19/24 10/03/24 History sertraline 100 mg tablet 100 mg PO DAILY 08/19/24 10/03/24 History trazodone 50 mg tablet 50 mg PO HS PRN sleeplessness 08/19/24 10/03/24 History triamcinolone acetonide 0.1 % 1 applic topical BID 08/19/24 10/03/24 History topical cream Patient History Family History (Updated 10/03/24 @ 11:55 by Carri Minaya PA-C) Father Cancer Kidney cancer Social History Smoking Status: Current every day smoker Tobacco Type: E-cigarettes / Vaping Second Hand Exposure: Yes; Do You Dip or Chew Tobacco: No; Tobacco Cessation Education Requested by Patient: No Hx Alcohol Use: Yes Alcohol type: hard liquor Hx Substance Use: No Preferred Language: Bulgarian Communication Ability: Effective Customer Support Associate Required: No Beliefs That Will Affect Care: None marital status: Single Current Living Situation: Family current occupational status: employed Other Information That Helps Us Care for You: No Feels Safe at Home: Yes Safety Concerns: Feels Safe At This Time Assistive Devices: None Review of Systems Review of Systems: All systems reviewed & are unremarkable except as noted in HPI & below Constitutional: as per Subjective / HPI Eyes: as per Subjective / HPI Ear, Nose, Mouth, Throat: as per Subjective / HPI Respiratory: as per Subjective / HPI Cardiovascular: as per Subjective / HPI Gastrointestinal: as per Subjective / HPI Genitourinary: as per Subjective / HPI Musculoskeletal: as per Subjective / HPI Integumentary: as per Subjective / HPI Physical Exam Constitutional: WD/WN, vitals as above Eyes: PERRL, conjunctivae normal, anicteric sclerae ENMT: external ear and nose normal, oropharynx normal Neck: trachea midline, no thyromegaly Respiratory: normal respiratory effort, lungs clear to auscultation Cardiovascular: RRR, no murmur, no edema Gastrointestinal (Abdomen): normal bowel sounds, soft, nontender, no hepatosplenomegaly Musculoskeletal: no cyanosis or clubbing, extremities motor strength 5/5 Skin: no rashes, warm and dry Results & Data Vital Signs (Past 12 Hours) Vital Signs Temp Pulse Pulse Resp BP Pulse Ox O2 Del Method 10/04/24 14:00 92 H 10/04/24 11:50 36.7 C 88 16 128/78 98 Room Air 10/04/24 07:29 36.7 C 88 16 102/58 L 96 Room Air 10/04/24 06:47 104 H 10/04/24 03:00 36.8 C 79 16 96/59 L 98 Room Air
[2024-10-04] MEDS: methylPREDNISolone 1,000 MG in NSS 250 ML IV SCH (16:20)
[2024-10-04] MEDS: diphenhydrAMINE 50 MG/ML VIAL IV PRN (16:39)
[2024-10-04] MEDS: ACETAMINOPHEN 500 MG TAB PO PRN (16:39)
[2024-10-04] MEDS: busPIRone 15 MG TAB PO SCH (20:47)
[2024-10-04] MEDS: Octagam 10% IVIG 10 gram bottle IV SCH (21:21)
[2024-10-04] MEDS: Octagam 10% IVIG 20 gram bottle IV SCH (23:58)
[2024-10-05 00:41] LABS: Hematocrit (blood only) 27.3 % (37.0-47.0); Hemoglobin 7.3 g/dl (12.0-16.0)
[2024-10-05 02:53] VITALS: RESP 16
[2024-10-05] MEDS: LEVOTHYROXINE SODIUM 137 MCG TABLET PO SCH (05:59)
[2024-10-05 07:06] LABS: BUN Creatinine Ratio 20.8 (10-20); Calcium 9.3 mg/dl (8.6-10.3); Creatinine Clr Calc Pharmacy 197.4 ml/min; Magnesium 2.1 mg/dl (1.7-2.4); Phosphorus 3.1 mg/dl (2.5-4.9); Potassium 3.8 mmol/L (3.5-5.1)
--- NOTE | 2024-10-05 07:14 | Hospitalist Progress Note ---
Date of Service October 05, 2024 Assessment & Plan (1) Autoimmune hemolytic anemia: (2) Mccormick syndrome: (3) Hypothyroidism: Plan Autoimmune hemolytic anemia Titi syndrome -Admitted to [facility] with telemetry -ordered / planned to Transfuse 2 units PRBCs, immunosuppressed at baseline, will need irradiated/leukoreduced blood from [place] - obtained on 10/04 - pt received 1 unit of pRBC -> Hgb 7.3 -haptoglobin, LDH, reticulocyte count, peripheral blood smear, c/w hemolytic anemia -On admission started Prednisone 50 mg twice daily stress dosing - admitting team discussed with Dr. Fung, patient's pediatric tallow refiner. -Continue sirolimus 10/04/2024 - Discussed w/ pt , her mom over the phone and RN at the bedside - pt reports she is seeing Dr. Ambrocio in November and that usually she is on IV meds when she has these episodes -> consulted and discussed with with inpt hematology (Dr. Miguel) -> started on IVIG and solumedrol Hypothyroidism -Continue levothyroxine 137 mcg daily Borderline Personality disorder Anxiety with depression -Continue Abilify 10 mg daily, BuSpar 15 mg twice daily, sertraline 100 mg daily. Hold trazodone 100 mg HS prn due to fatigue DVT ppx: Ambulatory FEN/GI: Regular diet CODE: Full code Dispo: From home, likely to remain in the hospital x 1-2 days Admission and Anticipated Discharge Date Admission Date: October 03, 2024 Subjective Pt seen in follow up of hemolytic anemia Currently laying in bed in [facility] Denies any chest pain, shortness of breath, dizziness. No abd. pain, n/v Discussed w/ pt , her mom over the phone and RN at the bedside yesterday - >consulted and discussed with inpt hematology -> started IVIG and IV solumedrol yesterday She received 1 unit of pRBC yesterday overall feeling well Review of Systems Review of Systems: All systems reviewed & are unremarkable except as noted in Subjective Physical Exam Physical Exam: General: awake, alert, no apparent distress, obese BMI 43.6, white female, + pallor Head: Normocephalic, atraumatic ENT: PERRL, EOMI, mucous membranes moist Chest: Clear to auscultation, on room air Cardiac: Regular rate and rhythm, no murmur, no JVD Abdominal: NABS x 4 quadrants, soft, nondistended, nontender to palpation Extremities: Normal inspection, no peripheral edema or erythema Psych: Normal mood and affect Neuro: AAO x 3, no facial asymmetry, speech fluent, answers appropriately, moves extremities Results & Data Results & Data Vital Signs (Past 12 Hours) Vital Signs Temp Pulse Pulse Resp BP BP Pulse Ox 10/05/24 07:00 80 10/05/24 02:51 36.7 C 66 16 109/70 100 10/04/24 22:03 88 10/04/24 20:32 36.8 C 64 18 112/71 96 10/04/24 19:45 36.8 C 67 18 130/75 O2 Del Method 10/05/24 07:00 10/05/24 02:51 Room Air 10/04/24 22:03 10/04/24 20:32 10/04/24 19:45 Laboratory Results 10/05/24 10/04/24 10/03/24 Range/Units 06:13 23:30 10:15 WBC 13.78 H (4.8-10.8) K/ul RBC 2.23 L (4.20-5.40) M/uL Hgb 7.2 L 7.3 L (12.0-16.0) g/dl Hct 24.7 L 27.3 L (37.0-47.0) % MCV 110.8 H D (80.0-100.0) fL MCH 33.2 (25.0-34.0) pg MCHC 30.0 L (32.0-36.0) g/dL RDW Std Deviation 89.0 H (36.4-46.3) fL RDW Coeff of Jesenia 23.8 H (11.5-14.5) % Plt Count 332 (130-400) K/uL MPV 9.7 (9.4-12.4) fL Absolute Nucleated RBC 0.20 H (0.00-0.12) K/uL Nucleated RBC % (auto) 1.5 % Sodium 136 (136-145) mmol/L Potassium 3.8 (3.5-5.1) mmol/L Chloride 107 (98-107) mmol/L Carbon Dioxide 24 (21-32) mmol/L Anion Gap 5 (3-11) BUN 10 (6-23) mg/dl Creatinine 0.48 L (0.6-1.2) mg/dl Est Cr Clr Drug Dosing 197.4 ml/min eGFR 138.11 BUN/Creatinine Ratio 20.8 H (10-20) Glucose 128 H (70-99(Fasting)) mg/dl Calcium 9.3 (8.6-10.3) mg/dl Phosphorus 3.1 (2.5-4.9) mg/dl Magnesium 2.1 (1.7-2.4) mg/dl Blood Type Antibody Screen Antibody Identification Anti-I Antibody ID Comment Cancelled Crossmatch See Detail 10/03/24 10/03/24 Range/Units 10:15 10:15 WBC (4.8-10.8) K/ul RBC (4.20-5.40) M/uL Hgb (12.0-16.0) g/dl Hct (37.0-47.0) % MCV (80.0-100.0) fL MCH (25.0-34.0) pg MCHC (32.0-36.0) g/dL RDW Std Deviation (36.4-46.3) fL RDW Coeff of [place] (11.5-14.5) % Plt Count (130-400) K/uL MPV (9.4-12.4) fL Absolute Nucleated RBC (0.00-0.12) K/uL Nucleated RBC % (auto) % Sodium (136-145) mmol/L Potassium (3.5-5.1) mmol/L Chloride (98-107) mmol/L Carbon Dioxide (21-32) mmol/L Anion Gap (3-11) BUN (6-23) mg/dl Creatinine (0.6-1.2) mg/dl Est Cr Clr Drug Dosing ml/min eGFR BUN/Creatinine Ratio (10-20) Glucose (70-99(Fasting)) mg/dl Calcium (8.6-10.3) mg/dl Phosphorus (2.5-4.9) mg/dl Magnesium (1.7-2.4) mg/dl Blood Type A Positive Antibody Screen POSITIVE A Antibody Identification Auto [place] Agglutinin Auto Cold Agglutinin Antibody ID Comment Crossmatch Medications Administered Current Inpatient Medications Acetaminophen (Acetaminophen 500 Mg Tab) 1,000 mg PO NOW PRN PRN Reason: Prior to Transfusion Stop: 11/02/24 10:59 Last Admin: 10/04/24 16:39 Dose: 1,000 mg Aripiprazole (Aripiprazole 15 Mg Tab) 15 mg PO DAILY [facility] Stop: 11/04/24 08:59 Buspirone HCl (Buspirone 15 Mg Tab) 15 mg PO BID [facility] Stop: 11/03/24 20:59 Last Admin: 10/04/24 20:47 Dose: 15 mg Diphenhydramine HCl (Diphenhydramine 50 Mg/Ml Vial) 50 mg IV NOW PRN PRN Reason: Prior to Transfusion Stop: 11/02/24 10:59 Last Admin: 10/04/24 16:39 Dose: 50 mg Famotidine (Famotidine 20 Mg Tab) 20 mg PO BID [facility] Stop: 11/03/24 08:59 Last Admin: 10/04/24 20:47 Dose: 20 mg Methylprednisolone 1,000 mg/ (Sodium Chloride) 266 mls @ 266 mls/hr IV DAILY@1600 [facility] Stop: 10/06/24 16:59 Last Infusion: 10/04/24 17:20 Dose: Infused Immune Globulin (Octagam 10%) 200 mls @ 60.24 mls/hr IV DAILY@1800,1900 [facility]; Protocol Stop: 10/05/24 22:20 Last Titration: 10/05/24 06:44 Dose: Infused Immune Globulin (Octagam 10%) 100 mls @ 60.24 mls/hr IV DAILY@1630 [facility]; Protocol Stop: 10/05/24 18:10 Last Titration: 10/04/24 23:01 Dose: Infused Levothyroxine Sodium (Levothyroxine Sodium 137 Mcg Tablet) 137 mcg PO DAILYBB [facility] Stop: 11/04/24 06:29 Last Admin: 10/05/24 05:59 Dose: 137 mcg Prednisone (Prednisone 50 Mg Tab) 50 mg PO BID [facility] Stop: 11/02/24 20:59 Last Admin: 10/04/24 08:57 Dose: 50 mg Sertraline HCl (Sertraline Hcl 100 Mg Tablet) 100 mg PO DAILY [facility] Stop: 11/04/24 08:59 Sirolimus (Sirolimus 0.5 Mg Tablet) 2 mg PO QAM [facility] Stop: 11/03/24 09:14 Last Admin: 10/04/24 09:39 Dose: 2 mg
[2024-10-05 08:08] LABS: Hematocrit (blood only) 24.7 % (37.0-47.0); Hemoglobin 7.2 g/dl (12.0-16.0); Mean Corpuscular Hemoglobin 33.2 pg (25.0-34.0); Mean Corpuscular Volume 110.8 fL (80.0-100.0); Mean Platelet Volume 9.7 fL (9.4-12.4); Nucleated RBC % (auto) 1.5 %; Platelet Count 332 K/uL (130-400); RDW Coefficient of Variation 23.8 % (11.5-14.5); Red Blood Count 2.23 M/uL (4.20-5.40); White Blood Count 13.78 K/ul (4.8-10.8)
[2024-10-05] MEDS: ARIPiprazole 15 MG TAB PO SCH (08:28)
[2024-10-05] MEDS: SERTRALINE HCL 100 MG TABLET PO SCH (08:28)
[2024-10-06 06:54] LABS: BUN Creatinine Ratio 29.4 (10-20); Calcium 8.9 mg/dl (8.6-10.3); Magnesium 2.1 mg/dl (1.7-2.4); Phosphorus 3.8 mg/dl (2.5-4.9)
[2024-10-06 07:25] LABS: Hemoglobin 7.5 g/dl (12.0-16.0); Mean Corpuscular Hemoglobin 37.5 pg (25.0-34.0); Mean Platelet Volume 9.6 fL (9.4-12.4); Nucleated RBC # (auto) 0.08 K/uL (0.00-0.12); Platelet Count 316 K/uL (130-400); RDW Coefficient of Variation 24.4 % (11.5-14.5); White Blood Count 7.95 K/ul (4.8-10.8)
--- NOTE | 2024-10-06 09:36 | Discharge Summary ---
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 She also admits to having increased pallor compared to what her typical complexion is. Patient did not quite feel herself therefore presented to lab and had routine blood work drawn as this is similar to previous exacerbations of anemia. Last time she required a transfusion was in 2022 with 1-2 units. This morning she noticed progressive shortness of breath when attempting to tie her shoes. She began taking her stress dose prednisone 50 mg twice daily this morning for such and presented here to the hospital. Hemoglobin is found to be 6.2 compared to 10.1 on 09/10/24. She had outpatient blood work completed on yesterday which showed hemoglobin of 6.6 and was referred here. Patient admits to nicotine vape use daily, would like a nicotine patch. She denies any other illicit drug use or alcohol use. Admission Exam Per Admitting Provider General: awake, alert, no apparent distress, obese BMI 43.6, white female, + pallor Head: Normocephalic, atraumatic ENT: PERRL, EOMI, no pharyngeal exudate, mucous membranes moist Chest: Clear to auscultation, on room air, no adventitious breath sounds Cardiac: Regular rate and rhythm, no murmur, no JVD, normal peripheral pulses, good capillary refill Abdominal: NABS x 4 quadrants, soft, nondistended, nontender to palpation, no rebound or guarding Extremities: Normal inspection, no peripheral edema or erythema, calfs nontender to palpation Psych: Normal mood and affect Neuro: AAO x 3, strength intact bilaterally and rated 5/5, no motor deficits, speech is clear, no peripheral sensory deficits Principal Diagnosis Autoimmune hemolytic anemia Discharge Exam General: awake, alert, no apparent distress, obese BMI 43.6, white female, + pallor Head: Normocephalic, atraumatic ENT: PERRL, EOMI, mucous membranes moist Chest: Clear to auscultation, on room air Cardiac: Regular rate and rhythm, no murmur, no JVD Abdominal: NABS x 4 quadrants, soft, nondistended, nontender to palpation Extremities: Normal inspection, no peripheral edema or erythema Psych: Normal mood and affect Neuro: AAO x 3, no facial asymmetry, speech fluent, answers appropriately, moves extremities Discharge Data Allergies Allergy/AdvReac Type Severity Reaction Status Date / Time ceftriaxone Allergy Intermediate RASH Verified 08/19/24 09:25 Penicillins Allergy Unknown AUTO Verified 08/19/24 09:25 IMMUNE DISORDER Sulfa (Sulfonamide Allergy Unknown AUTO Verified 08/19/24 09:25 Antibiotics) IMMUNE DISORDER Consultations 10/03/24 11:44 ED Decision to Admit Stat 10/04/24 09:05 Consult Hematology Routine Hospital Course (1) Autoimmune hemolytic anemia: (2) Mccormick syndrome: (3) Hypothyroidism: Plan Autoimmune hemolytic anemia Titi syndrome -Admitted to [facility] with telemetry -ordered / planned to Transfuse 2 units PRBCs, immunosuppressed at baseline, will need irradiated/leukoreduced blood from [facility] - obtained on 10/04 - pt received 1 unit of pRBC -> Hgb 7.3, repeat next day Hgb 7.5 (10/06/2024) -haptoglobin, LDH, reticulocyte count, peripheral blood smear, c/w hemolytic ane panda -On admission started Prednisone 50 mg twice daily stress dosing - admitting team discussed with Dr. Fung, patient's pediatric cadworx piping designer. -Continue sirolimus 10/04/2024 - Discussed w/ pt , her mom over the phone and RN at the bedside - pt reports she is seeing Dr. Ambrocio in November and that usually she is on IV meds when she has these episodes -> consulted and discussed with inpt hematology (Dr. Miguel) -> started on IVIG and solumedrol Pt finished IVIG x2 days and solumedrol 1g daily x3 days Discussed with Dr. Miguel (10/06/2024) - will DC on prednisone 50 mg QID - pt will follow up wit hematology in 1-2 weeks - at that time they will taper down her prednisone. Hypothyroidism -Continue levothyroxine 137 mcg daily Borderline Personality disorder Anxiety with depression -Continue Abilify 10 mg daily, BuSpar 15 mg twice daily, sertraline 100 mg daily. Hold trazodone 100 mg HS prn due to fatigue Total Time Total Time Spent Total Time Spent (In Minutes): 40 Discharge Plan Discharge Items Patient Disposition: Home - Self-Care Reason For Visit: AUTOIMMUNE HEMOLYTIC ANEMIA Discharge Diagnosis: Autoimmune hemolytic anemia Activity: Per Instructions section Non-emergency contact: Primary Care Provider and Specialist Call non-emergency contact if: you have any medication questions and your symptoms worsen Follow-up/Referrals: Madison Montelongo MD [Primary Care Provider] - (Date & Time 10/10/2024 9:00 AM Provider: Marito Echeverria CRNP [facility] ) Diet: Regular Addtl Attending Provider Instructions: Follow up with your primary care physician and cadworx piping designer. The follow up with your primary care physician was scheduled for you for 10/10/2024. You should follow up with hematology in 1-2 weeks. In the meantime , take prednisone 50 mg 4 times a day. Your cadworx piping designer will then taper down your prednisone. Continue taking your sirolimus. Pending Studies at Discharge: No Stand-Alone Forms: My [employer], Smoking Cessation Medications and DC Order Prescriptions: New prednisone 50 mg tablet 50 mg PO QID 10 Days Qty: 40 0RF Continued sirolimus 2 mg tablet 2 mg PO QAM Rx Instructions: Last filled 06/2024 x30 day supply. Unable to verify if pt gets this from another pharmacy. Original Directions: 2mg by mouth QAM calcium carbonate [Tums] 200 mg calcium (500 mg) Tablet,Chewable 200 mg PO DIRECTED PRN (Reason: HEARTBURN/INDIGESTION) Rx Instructions: Unable to verify OTC meds at this date/time. cholecalciferol (vitamin D3) [Vitamin D3] 25 mcg (1,000 unit) Capsule 25 mcg PO DAILY Rx Instructions: Unable to verify OTC meds at this date/time. levothyroxine 137 mcg tablet 137 mcg PO DAILYBB trazodone 50 mg tablet 50 mg PO HS PRN (Reason: sleeplessness) sertraline 100 mg tablet 100 mg PO DAILY triamcinolone acetonide 0.1 % cream 1 applic topical BID buspirone 15 mg tablet 15 mg PO BID aripiprazole 15 mg tablet 15 mg PO DAILY Discharge Orders: Discharge Order (Routine); Ordered 10/06/24 Ordered By: Eber Simpson Admission Data Admit Date/Time: 10/03/24 12:03 Attending Provider: Eber Simpson Admit Provider: Gatito Green Primary Care Provider: Madison Montelongo Other Providers: Gatito Green; Zak Miguel
[2024-10-06 11:37] VITALS: BP 104/57; PULSE 92; TEMP 97.7; O2SAT 97
== END 2024-10-06 15:32 | disposition home or self-care (01) | DRG 809 ==
LOC: ED 09:43 → 2W 12:03 → SUATTDRO 12:03 → 2W 12:55

== ENCOUNTER 2024-12-01 20:43 | Observation (INO) ==
[2024-12-01 21:57] LABS: Appearance Urine Clear (Clear); Bacteria Urine Automated 1+ (None Seen); Bilirubin Urine Negative (Negative); Blood Urine Trace (Negative); Cast Urine Automated 0-2 /lpf (0-2); Color Urine Yellow; Glucose Urine UA Negative (Negative); Ketones Urine Trace (Negative); Leukocyte Esterase Urine Negative (Negative); Nitrite Urine Negative (Negative); Protein Urine 1+ (Negative); Specific Gravity Urine 1.017 (1.000-1.030); Urobilinogen Urine Negative (Negative); WBC Urine Automated 0-5 /hpf (0-5); pH Urine 5.5 (4.5-7.5)
[2024-12-01 22:13] LABS: Alanine Aminotransferase 16 U/L (7-52); Albumin Globulin Ratio 1.1 (0.9-2); Albumin Level 4.1 gm/dl (3.4-5.0); Alkaline Phosphatase 89 U/L (34-104); Anion Gap 5 (3-11); Aspartate Aminotransferase 23 U/L (13-39); BUN Creatinine Ratio 8.7 (10-20); Bilirubin,Total 1.2 mg/dl (0.2-1.0); Blood Urea Nitrogen 6 mg/dl (6-23); Carbon Dioxide 25 mmol/L (21-32); Chloride 107 mmol/L (98-107); Creatinine Clr Calc Pharmacy 137.6 ml/min; Globulin 3.7 gm/dl (2.5-4.0); Glucose 84 mg/dl (70-99(Fasting)); Potassium 3.4 mmol/L (3.5-5.1); Sodium 137 mmol/L (136-145); Total Protein 7.8 gm/dl (6.0-8.3)
[2024-12-01 22:19] LABS: Troponin I High Sensitivity < 2.3 pg/ml (0-14)
[2024-12-01] MEDS: SODIUM CHLORIDE 0.9% 1,000 ML IV ONE (22:20)
[2024-12-01 22:23] LABS: Partial Thromboplastin Time 26 Seconds (21-31); Prothrombin Time 10.4 Seconds (9.0-12.0)
--- NOTE | 2024-12-01 22:38 | Emergency Department Note ---
Impression & Plan Dizziness, Syncope, Autoimmune hemolytic anemia ED Provider Note ED Provider Note NAME: MAIA HERNANDEZ AGE:19 SEX: Female : 2005 ARRIVES VIA: Private vehicle INFORMANT: Patient ED PROVIDER(s): Ivory Cheney DO CHIEF COMPLAINT: Dizziness, syncopal event HPI: This is a 19-year-old female who presents emergency department due to concern for dizziness and a syncopal event. Patient states she began feeling worse last week and had outpatient labs due to her history of autoimmune hemolytic anemia. She follows with Dr. Ambrocio of hematology. She states her hemoglobin last week in outpatient labs was [address] Ambrocio told her to begin taking steroids. She has been taking prednisone 50 mg daily over the last 3 to 4 days as previously instructed. She states she gets lightheaded and dizzy, feels more tired and weak, and is short of breath with exertion. Patient is at the end of her menstrual cycle to which she states is typically heavy and last 1 week. She states 2 weeks ago she did have a cold which has resolved. She states both of these have been triggers for her hemolytic anemia previously. She states tonight she stood up off the couch and initially felt fine and then while walking back to her bedroom began to feel more weak and lightheaded and passed out. She states when she woke up she was laying on the floor on her left side. She denies any change in urine, no hematuria. She states mild loose stools which is normal during her menses, no evidence of GI bleed. PAST MEDICAL HISTORY:See Below PAST SURGICAL HISTORY:See Below FAMILY HISTORY:See Below SOCIAL HISTORY:See Below HOME MEDICATIONS:See Below ALLERGIES:See Below VITALS:See Below PHYSICAL EXAMINATION: GENERAL: alert, well appearing, well nourished, no distress, non-toxic HEAD: nc/at EYE EXAM: normal conjunctiva, PERRL and EOM's grossly intact OROPHARYNX: no exudate, no erythema, lips, buccal mucosa, and tongue normal and mucous membranes are moist NECK: supple, no nuchal rigidity, no adenopathy, non-tender LUNGS: Clear to auscultation. Normal chest wall mechanics, no w/r/r HEART: no murmurs, S1 normal and S2 normal ABDOMEN: abdomen soft, non-tender, normo-active bowel sounds, no masses, no rebound or guarding. SKIN: no rashes, petechiae, orbruising UPPER EXTREMITIES: upper extremities are grossly normal. FROM, nml pulses b/l. LOWER EXTREMITIES: No pitting edema. FROM, nml pulses b/l. NEURO EXAM: Normal sensorium, cranial nerves II-XII grossly intact, normal speech, no facial droop,nogross weakness of arms, no gross weakness of legs. Gross sensation intact. No ataxia. Vital Signs: reviewed and remarkable Differential Diagnosis: symptomatic anemia, vasovagal syncope, ICH, dehydration, occult fracture, LUCINA, electrolyte abnormality, dysrhythmia, medication adr, acs, pe, occult infection, as well as others were considered MEDICAL DECISION MAKING: This is a 19 yo female with a hx of hemolytic anemia who presents with recent worsening dizziness, fatigue, NEGRO and an episode of syncope tonight. Symptoms feel similar to prior worsening anemia per her report. She is just finishing her menstrual cycle additionally. She was afebrile and VS stable. Labs drawn and sent, IV established, EKG performed and interpreted at bedside, and patient placed on telemetry. She was sent for CT head additionally. H/H lower compared to prior and low for the baseline she is kept at per hematology. No ectopy of dysrhythmia noted on tele. UA reassuring and troponin negative. Case discussed with motor power connector hematology to discuss transfusion - recommended admission and 1 un pRBC to start but likely suspects patient may need a second unit given her hx. Blood consent form signed at bedside. Case discussed with hospitalist team for additional evaluation and mgmt. Consultation(s): 0042: Discussed with Dr. Miguel. Recommends transfusion of one unit now and then rechecking H/H and re-evaluating her symptoms to see if further transfusion needed. Prior goals given hemolytic anemia is hgb btw 10-11. 0117: Discussed with Dr. Stoddard for further in patient mgmt. ER Treatment Provided: See below Diagnostics Interpreted By Me: -ECG: nsr at 88, nml axis, nml intervals, no acute ST/T wave changes -Cardiac Monitoring: An order was placed for continuous cardiac monitoring. The monitor shows a rate of 82 with normal sinus rhythm. -Laboratory studies: As stated above and show below. -Imaging studies: ct head: no ich Triage Nursing Note Reviewed Prior/Outside Records Reviewed Critical Care: Critical care of 39 min performed to assess and manage high likelihood of life-threatening symptomatic anemia, involving labs and imaging performed with assessment to evaluate syncope and anemia diagnosis with frequent reassessment. This time includes bedside time, treatment discussions with patient/family/consultants, documentation time and excludes procedure time. Past Med/Surg History Problem List (Updated 12/03/24 @ 12:20 by Ivory Cheney DO) Patent foramen ovale Suspected UTI Syncope (Acute) Dizziness (Acute) Mccormick syndrome Anxiety Autoimmune hemolytic anemia (Chronic 06/06/13) Family History (Updated 10/03/24 @ 11:55 by Carri Minaya PA-C) Father Cancer Kidney cancer Social History Smoking Status: Current every day smoker Tobacco Type: E-cigarettes / Vaping Second Hand Exposure: No; Do You Dip or Chew Tobacco: No; Tobacco Cessation Education Requested by Patient: No Hx Alcohol Use: Yes Alcohol type: hard liquor Hx Substance Use: No Preferred Language: Chinese Communication Ability: Effective Queen'S Counsel Required: No Beliefs That Will Affect Care: None marital status: Single Current Living Situation: Family current occupational status: employed Other Information That Helps Us Care for You: No Feels Safe at Home: Yes Safety Concerns: Feels Safe At This Time Assistive Devices: None Allergies Allergies Allergy/AdvReac Type Severity Reaction Status Date / Time ceftriaxone Allergy Intermediate RASH Verified 08/19/24 09:25 Penicillins Allergy Unknown AUTO Verified 08/19/24 09:25 IMMUNE DISORDER Sulfa (Sulfonamide Allergy Unknown AUTO Verified 08/19/24 09:25 Antibiotics) IMMUNE DISORDER Home Meds Home Medications Medication Instructions Recorded Confirmed aripiprazole 15 mg tablet 15 mg PO DAILY 12/02/24 12/02/24 buspirone 15 mg tablet 15 mg PO BID 12/02/24 12/02/24 folic acid 1 mg tablet 1 mg PO DAILY 12/02/24 12/02/24 levothyroxine 137 mcg tablet 137 mcg PO DAILY 12/02/24 12/02/24 prednisone 50 mg tablet 50 mg PO HS 12/02/24 12/02/24 sertraline 100 mg tablet 100 mg PO DAILY 12/02/24 12/02/24 sirolimus 2 mg tablet 2 mg PO DAILY 12/02/24 12/02/24 Results & Data (ED) Vital Signs Vital Signs - 24 hr 12/01/24 20:48 12/01/24 21:24 12/01/24 21:25 Temperature 36.6 C Temperature Source Oral Pulse Rate 89 96 H Respiratory Rate Blood Pressure 124/82 104/72 Blood Pressure Mean 96 74 Pulse Oximetry 99 Oxygen Delivery Method Room Air Sepsis Recent Fever Within 48 Hours No Sepsis New/Unexplained Change in Mental Status No Sepsis Action Taken by Nursing No Action Required 12/01/24 21:27 12/01/24 21:30 12/01/24 21:33 Temperature Temperature Source Pulse Rate 88 92 H Respiratory Rate 22 26 H Blood Pressure 95/68 L Blood Pressure Mean 72 Pulse Oximetry Oxygen Delivery Method Sepsis Recent Fever Within 48 Hours Sepsis New/Unexplained Change in Mental Status Sepsis Action Taken by Nursing 12/01/24 21:41 Temperature Temperature Source Pulse Rate Respiratory Rate Blood Pressure Blood Pressure Mean Pulse Oximetry 96 Oxygen Delivery Method Room Air Sepsis Recent Fever Within 48 Hours Sepsis New/Unexplained Change in Mental Status Sepsis Action Taken by Nursing Laboratory Data 12/03/24 07:24 12/02/24 06:35 Lab Results 12/01/24 12/01/24 12/01/24 Range/Units 21:22 21:38 22:19 WBC 7.45 (4.8-10.8) K/ul RBC 2.80 L (4.20-5.40) M/uL Hgb 8.0 L (12.0-16.0) g/dl Hct 26.0 L (37.0-47.0) % MCV 92.9 (80.0-100.0) fL MCH 28.6 (25.0-34.0) pg MCHC 30.8 L (32.0-36.0) g/dL RDW Std Deviation 52.5 H (36.4-46.3) fL RDW Coeff of Jesenia 15.5 H (11.5-14.5) % Plt Count 365 (130-400) K/uL MPV 10.5 (9.4-12.4) fL Immature Gran % (Auto) 2.7 % Neut % (Auto) 58.4 % Lymph % (Auto) 26.2 % Crowley % (Auto) 10.7 % Eos % (Auto) 2.0 % Baso % (Auto) 0.0 % Neut # (Auto) 4.35 (1.40-6.50) K/uL Lymph # (Auto) 1.95 (1.20-3.40) K/uL Crowley # (Auto) 0.80 H (0.11-0.59) K/uL Eos # (Auto) 0.15 (0.00-0.50) K/uL Baso # (Auto) 0.00 (0.00-0.20) K/uL Immature Gran # (Auto) 0.20 (0.01-0.20) K/uL Polychromasia 2+ Anisocytosis Present PT 10.4 (9.0-12.0) Seconds INR 1.0 (0.9-1.1) APTT 26 (21-31) Seconds PTT Ratio 1.0 Sodium 137 (136-145) mmol/L Potassium 3.4 L (3.5-5.1) mmol/L Chloride 107 (98-107) mmol/L Carbon Dioxide 25 (21-32) mmol/L Anion Gap 5 (3-11) BUN 6 (6-23) mg/dl Creatinine 0.69 (0.6-1.2) mg/dl Est Cr Clr Drug Dosing 137.6 ml/min eGFR 126.55 BUN/Creatinine Ratio 8.7 L (10-20) Glucose 84 (70-99(Fasting)) mg/dl Calcium 9.0 (8.6-10.3) mg/dl Total Bilirubin 1.2 H (0.2-1.0) mg/dl AST 23 (13-39) U/L ALT 16 (7-52) U/L Alkaline Phosphatase 89 (34-104) U/L Troponin I High Sens < 2.3 (0-14) pg/ml Total Protein 7.8 (6.0-8.3) gm/dl Albumin 4.1 (3.4-5.0) gm/dl Globulin 3.7 (2.5-4.0) gm/dl Albumin/Globulin Ratio 1.1 (0.9-2) Urine Color Yellow Urine Appearance Clear (Clear) Urine pH 5.5 (4.5-7.5) Ur Specific [place] 1.017 (1.000-1.030) Urine Protein 1+ H (Negative) Urine Glucose (UA) Negative (Negative) Urine Ketones Trace H (Negative) Urine Blood Trace H (Negative) Urine Nitrite Negative (Negative) Urine Bilirubin Negative (Negative) Urine Urobilinogen Negative (Negative) Ur Leukocyte Esterase Negative (Negative) Urine WBC (Auto) 0-5 (0-5) /hpf Urine RBC (Auto) 3-5 H (0-2) /hpf U Hyaline Cast (Auto) 0-2 (0-2) /lpf U Epithel Cells (Auto) 3-5 H (0-2) /hpf Urine Bacteria (Auto) 1+ H (None Seen) Blood Type A Positive Antibody Screen POSITIVE A Antibody Identification Auto Cold Agglutinin Antibody ID Comment Crossmatch 12/01/24 12/01/24 Range/Units 22:19 22:19 WBC (4.8-10.8) K/ul RBC (4.20-5.40) M/uL Hgb (12.0-16.0) g/dl Hct (37.0-47.0) % MCV (80.0-100.0) fL MCH (25.0-34.0) pg MCHC (32.0-36.0) g/dL RDW Std Deviation (36.4-46.3) fL RDW Coeff of Jesenia (11.5-14.5) % Plt Count (130-400) K/uL MPV (9.4-12.4) fL Immature Gran % (Auto) % Neut % (Auto) % Lymph % (Auto) % Crowley % (Auto) % Eos % (Auto) % Baso % (Auto) % Neut # (Auto) (1.40-6.50) K/uL Lymph # (Auto) (1.20-3.40) K/uL Crowley # (Auto) (0.11-0.59) K/uL Eos # (Auto) (0.00-0.50) K/uL Baso # (Auto) (0.00-0.20) K/uL Immature Gran # (Auto) (0.01-0.20) K/uL Polychromasia Anisocytosis PT (9.0-12.0) Seconds INR (0.9-1.1) APTT (21-31) Seconds PTT Ratio Sodium (136-145) mmol/L Potassium (3.5-5.1) mmol/L Chloride (98-107) mmol/L Carbon Dioxide (21-32) mmol/L Anion Gap (3-11) BUN (6-23) mg/dl Creatinine (0.6-1.2) mg/dl Est Cr Clr Drug Dosing ml/min eGFR BUN/Creatinine Ratio (10-20) Glucose (70-99(Fasting)) mg/dl Calcium (8.6-10.3) mg/dl Total Bilirubin (0.2-1.0) mg/dl AST (13-39) U/L ALT (7-52) U/L Alkaline Phosphatase (34-104) U/L Troponin I High Sens (0-14) pg/ml Total Protein (6.0-8.3) gm/dl Albumin (3.4-5.0) gm/dl Globulin (2.5-4.0) gm/dl Albumin/Globulin Ratio (0.9-2) Urine Color Urine Appearance (Clear) Urine pH (4.5-7.5) Ur Specific [place] (1.000-1.030) Urine Protein (Negative) Urine Glucose (UA) (Negative) Urine Ketones (Negative) Urine Blood (Negative) Urine Nitrite (Negative) Urine Bilirubin (Negative) Urine Urobilinogen (Negative) Ur Leukocyte Esterase (Negative) Urine WBC (Auto) (0-5) /hpf Urine RBC (Auto) (0-2) /hpf U Hyaline Cast (Auto) (0-2) /lpf U Epithel Cells (Auto) (0-2) /hpf Urine Bacteria (Auto) (None Seen) Blood Type Antibody Screen Antibody Identification Auto Faulkner Agglutinin Anti-I Antibody ID Comment Cancelled Crossmatch See Detail Administered Medications Aripiprazole (Aripiprazole 15 Mg Tab) 15 mg PO DAILY FABRICIO Stop: 01/01/25 08:59 Last Admin: 12/03/24 08:03 Dose: 15 mg Documented By: Admin: 12/02/24 08:44 Dose: 15 mg Documented By: LAKEISHA Buspirone HCl (Buspirone 15 Mg Tab) 15 mg PO BID FABRICIO Stop: 01/01/25 08:59 Last Admin: 12/03/24 08:03 Dose: 15 mg Documented By: Admin: 12/02/24 20:47 Dose: 15 mg Documented By: Admin: 12/02/24 08:44 Dose: 15 mg Documented By: LAKEISHA Folic Acid (Folic Acid 1 Mg Tab) 1 mg PO DAILY [facility] Stop: 01/01/25 08:59 Last Admin: 12/03/24 08:04 Dose: 1 mg Documented By: Admin: 12/02/24 08:44 Dose: 1 mg Documented By: LAKEISHA Aztreonam 2,000 mg/ Dextrose 100 mls @ 100 mls/hr IV Q8H FABRICIO Stop: 12/07/24 08:59 Last Infusion: 12/03/24 09:43 Dose: Infused Documented By: Admin: 12/03/24 08:03 Dose: 100 mls/hr Documented By: Infusion: 12/03/24 01:57 Dose: Infused Documented By: Admin: 12/03/24 00:56 Dose: 100 mls/hr Documented By: Infusion: 12/02/24 18:34 Dose: Infused Documented By: Admin: 12/02/24 16:57 Dose: 100 mls/hr Documented By: PETER Co-signed By: LAKEISHA Infusion: 12/02/24 12:08 Dose: Infused Documented By: Admin: 12/02/24 10:59 Dose: 100 mls/hr Documented By: LAKEISHA Immune Globulin (Octagam 10%) 200 mls @ 60.419 mls/hr IV DAILY@1900,2000,2100 FABRICIO; Protocol Stop: 12/04/24 00:19 Last Titration: 12/02/24 23:28 Dose: Infused Documented By: Admin: 12/02/24 22:57 Dose: 7.94 mg/kg/min, 480 mls/hr Documented By: Titration: 12/02/24 22:54 Dose: Infused Documented By: Admin: 12/02/24 22:28 Dose: 7.94 mg/kg/min, 480 mls/hr Documented By: Titration: 12/02/24 22:26 Dose: Infused Documented By: Titration: 12/02/24 22:12 Dose: 7.94 mg/kg/min, 480 mls/hr Documented By: Admin: 12/02/24 21:48 Dose: 3.97 mg/kg/min, 240 mls/hr Documented By: WARREN Immune Globulin (Octagam 10%) 100 mls @ 60.419 mls/hr IV DAILY@1800 [facility]; Protocol Stop: 12/03/24 19:40 Last Titration: 12/02/24 21:50 Dose: Infused Documented By: Titration: 12/02/24 21:16 Dose: 1.99 mg/kg/min, 120 mls/hr Documented By: Admin: 12/02/24 20:47 Dose: 1 mg/kg/min, 60.4 mls/hr Documented By: WARREN Methylprednisolone 1,000 mg/ (Sodium Chloride) 266 mls @ 266 mls/hr IV DAILY@1800 [facility] Stop: 12/04/24 18:59 Last Infusion: 12/02/24 19:51 Dose: Infused Documented By: Admin: 12/02/24 18:47 Dose: 266 mls/hr Documented By: LAKEISHA Levothyroxine Sodium (Levothyroxine Sodium 137 Mcg Tablet) 137 mcg PO DAILYBB [facility] Stop: 01/01/25 06:29 Last Admin: 12/03/24 05:30 Dose: 137 mcg Documented By: Admin: 12/02/24 06:08 Dose: 137 mcg Documented By: EDMUNDO Sertraline HCl (Sertraline Hcl 100 Mg Tablet) 100 mg PO DAILY [facility] Stop: 01/01/25 08:59 Last Admin: 12/03/24 08:04 Dose: 100 mg Documented By: Admin: 12/02/24 08:44 Dose: 100 mg Documented By: LAKEISHA Sirolimus (Sirolimus 0.5 Mg Tablet) 2 mg PO DAILY [facility] Stop: 01/01/25 08:59 Last Admin: 12/03/24 08:04 Dose: 2 mg Documented By: Admin: 12/02/24 10:30 Dose: 2 mg Documented By: LAKEISHA Discontinued Medications Diphenhydramine HCl (Diphenhydramine 50 Mg/Ml Vial) 25 mg IV NOW STA Stop: 12/02/24 01:33 Last Admin: 12/02/24 12:40 Dose: Not Given Documented By: LAKEISHA Sodium Chloride (Nss) 1,000 mls @ 999 mls/hr IV .Q1H1M ONE Stop: 12/01/24 23:05 Last Infusion: 12/01/24 23:30 Dose: Infused Documented By: Admin: 12/01/24 22:20 Dose: 999 mls/hr Documented By: CEF Acetaminophen (Ofirmev) 1,000 mg in 100 mls @ 400 mls/hr IV NOW STA Stop: 12/02/24 01:46 Last Admin: 12/02/24 12:41 Dose: Not Given Documented By: LAKEISHA Sodium Chloride (Nss) 1,000 mls @ 80 mls/hr IV .[id number] STA Stop: 12/02/24 17:18 Last Infusion: 12/02/24 12:41 Dose: Infused Documented By: Admin: 12/02/24 06:08 Dose: 80 mls/hr Documented By: EDMUNDO Discharge Plan Visit Data Chief Complaint: Vertigo Stated Complaint: DIZZY, SYNCOPE ED Provider: Ivory Cheney Discharge Problem: Dizziness, Syncope, Autoimmune hemolytic anemia Patient Disposition: Admitted As Inpatient Discharge Instructions Interventions: ED Discharge Assessment Last Done: 12/02/24 04:24
[2024-12-01 23:34] LABS: Mean Corpuscular Hemoglobin 28.6 pg (25.0-34.0); Mean Corpuscular Hgb Conc 30.8 g/dL (32.0-36.0); Mean Corpuscular Volume 92.9 fL (80.0-100.0); Mean Platelet Volume 10.5 fL (9.4-12.4); Platelet Count 365 K/uL (130-400); RDW Coefficient of Variation 15.5 % (11.5-14.5); RDW Standard Deviation 52.5 fL (36.4-46.3); White Blood Count 7.45 K/ul (4.8-10.8)
[2024-12-01 23:35] LABS: Anisocytosis Present; Eosinophils # (auto) 0.15 K/uL (0.00-0.50); Immature Granulocytes % (auto) 2.7 %; Lymphocytes # (auto) 1.95 K/uL (1.20-3.40); Lymphocytes % (auto) 26.2 %; Monocytes % (auto) 10.7 %; Neutrophils # (auto) 4.35 K/uL (1.40-6.50); Neutrophils % (auto) 58.4 %; Polychromasia 2+
--- NOTE | 2024-12-01 23:58 | CT Scan Report ---
Exam(s): CT HEAD Without Contrast EXAM: CT Head Without Intravenous Contrast CLINICAL HISTORY: Reason for exam: trauma, syncope. TECHNIQUE: Axial computed tomography images of the head/brain without intravenous contrast. CTDI is 36.9 mGy and DLP is 547.75 mGy-cm. Automated exposure control was utilized for the study. A dose lowering technique was utilized adhering to the principles of ALARA. COMPARISON: 10/17/2022. FINDINGS: Brain: Unremarkable. No acute intracranial hemorrhage, edema or abnormal mass-effect. Ventricles: Unremarkable. No ventriculomegaly. Bones/joints: Unremarkable. No acute fracture. Soft tissues: Unremarkable. Sinuses: Unremarkable as visualized. No acute sinusitis. Mastoid air cells: Unremarkable as visualized. No mastoid effusion. IMPRESSION: Negative head/brain CT. Electronically signed by: Can Rodgers MD 12/01/24 23:57 PM
[2024-12-02] MEDS ORDERED: SODIUM CHLORIDE 0.9% 100 ML IV PRN (01:36)
--- NOTE | 2024-12-02 03:36 | History & Physical Report ---
Date of Service December 02, 2024 Assessment & Plan (1) Syncope: Plan: 19-year-old female with past medical history significant for hypothyroidism due to Adriano thyroiditis, morbid obesity, chronic UTI, autoimmune hemolytic anemia, mccormick syndrome, depression, borderline personality disorder, generalized anxiety disorder, medically noncompliant, presents with syncope. Patient was lately feeling dizzy and tired and she was also having heavy menses and outpati ent labs showed hemoglobin 9 and her mattress inspector told her to start taking steroids. She started steroids couple of days ago. Tonight when patient was walking she felt dizzy and passed out and slowly fell down. Patient does not think she hit her head. She thinks she passed out only for few seconds. She was able to get up. Currently resting comfortably and hemodynamically stable. Denies any headache currently. Vision is okay. No runny nose or sore throat. No cough. No chest pain. No shortness of breath. No nausea. No abdominal pain. Normal bowel and bladder movements. Syncope Mostly from symptomatic anemia EKG okay Troponin negative Will monitor on telemetry Follow repeat EKG and troponin Will follow echo Gentle fluids Will check orthostatics Symptomatic anemia Autoimmune hemolytic anemia Recently started on steroids 50 mg daily which will br continued ER spoke with the hematology and recommend forunit of PRBC and continue current steroid dose Continue sirolimus Will follow repeat hemoglobin Consult heme-onc in a.m. Hypothyroidism Continue Synthyroid Possible UTI Empiric Azactam Follow cultures Morbid obesity Counseling Depression Borderline personal disorder Generalized anxiety disorder Continue omeprazole and buspirone and Zoloft DVT prophylaxis SCDs Disposition Telemetry Full code. History of Present Illness Chief Complaint: Anemia, syncope Primary Care Provider: Madison Montelongo MD 19-year-old female with past medical history significant for hypothyroidism due to Adriano thyroiditis, morbid obesity, chronic UTI, autoimmune hemolytic anemia, mccormick syndrome, depression, borderline personality disorder, generalized anxiety disorder, medically noncompliant, presents with syncope. Patient was lately feeling dizzy and tired and she was also having heavy menses and outpatient labs showed hemoglobin 9 and her mattress inspector told her to start taking steroids. She started steroids couple of days ago. Tonight when patient was walking she felt dizzy and passed out and slowly fell down. Patient does not think she hit her head. She thinks she passed out only for few seconds. She was able to get up. Currently resting comfortably and hemodynamically stable. Denies any headache currently. Vision is okay. No runny nose or sore throat. No cough. No chest pain. No shortness of breath. No nausea. No abdominal pain. Normal bowel and bladder movements. Past medical history. As mentioned above Past surgical history. Tongue-tie release. Social history. Lives with her mother. Former smoker. No alcohol use. No drug use. Family history. Mother has arthritis. Father had kidney cancer. Aunt had leukemia. Maternal grandfather had colon cancer. Allergies Allergy/AdvReac Type Severity Reaction Status Date / Time ceftriaxone Allergy Intermediate RASH Verified 08/19/24 09:25 Penicillins Allergy Unknown AUTO Verified 08/19/24: IMMUNE DISORDER Sulfa (Sulfonamide Allergy Unknown AUTO Verified 08/19/24: Antibiotics) IMMUNE DISORDER Home Medications Medication Instructions Recorded Confirmed Type aripiprazole 15 mg tablet 15 mg PO DAILY 12/02/24 12/02/24 History buspirone 15 mg tablet 15 mg PO BID 12/02/24 12/02/24 History folic acid 1 mg tablet 1 mg PO DAILY 12/02/24 12/02/24 History levothyroxine 137 mcg tablet 137 mcg PO DAILY 12/02/24 12/02/24 History prednisone 50 mg tablet 50 mg PO HS 12/02/24 12/02/24 History sertraline 100 mg tablet 100 mg PO DAILY 12/02/24 12/02/24 History sirolimus 2 mg tablet 2 mg PO DAILY 12/02/24 12/02/24 History Past Med/Surg History Problem List (Updated 12/01/24 @ 22:38 by Ivory Cheney DO) Syncope (Acute) Dizziness (Acute) Mccormick syndrome Anxiety Autoimmune hemolytic anemia (Chronic 06/06/13) Family History (Updated 10/03/24 @ 11:55 by Carri Minaya PA-C) Father Cancer Kidney cancer Social History Smoking Status: Current every day smoker Tobacco Type: E-cigarettes / Vaping Second Hand Exposure: No; Do You Dip or Chew Tobacco: No; Tobacco Cessation Education Requested by Patient: No Hx Alcohol Use: Yes Alcohol type: hard liquor Hx Substance Use: No Preferred Language: Syriac Communication Ability: Effective Driver Trainee Required: No Beliefs That Will Affect Care: None marital status: Single Current Living Situation: Family current occupational status: employed Other Information That Helps Us Care for You: No Feels Safe at Home: Yes Safety Concerns: Feels Safe At This Time Assistive Devices: Glasses Review of Systems Review of Systems: All systems reviewed & are unremarkable except as noted in HPI & below Physical Exam Physical Exam: General- Not in distress Head- atraumatic Eyes- PERRL. ENT- oropharynx clear Neck- supple, no JVD. Lungs- clear to auscultation no wheezing or crackles Heart- regular rate and rhythm; no murmur, no gallop. Abdomen- normal bowel sounds, soft, nontender, no distension Extremities- lower extremity edema present, no erythema seen Neuro- alert, oriented PERRL, no facial palsy; no dysarthria; moves extremities Results & Data Results & Data Vital Signs (Past 12 Hours) Vital Signs Temp Pulse Pulse Resp BP BP Pulse Ox 12/02/24 02:11 94 H 16 115/77 95 12/02/24 00:00 81 18 113/63 97 12/01/24 22:36 81 24 97 12/01/24 22:21 89 22 118/62 100 12/01/24 22:18 88 25 H 12/01/24 21:41 96 12/01/24 21:33 92 H 26 H 12/01/24 21:30 95/68 L 12/01/24 21:27 88 22 12/01/24 21:25 96 H 12/01/24 21:24 104/72 12/01/24 20:48 36.6 C 89 124/82 99 O2 Del Method 12/02/24 02:11 Room Air 12/02/24 00:00 Room Air 12/01/24 22:36 12/01/24 22:21 12/01/24 22:18 12/01/24 21:41 Room Air 12/01/24 21:33 12/01/24 21:30 12/01/24 21:27 12/01/24 21:25 12/01/24 21:24 12/01/24 20:48 Room Air Diagnostic Findings Laboratory Results WBC 7.45 K/ul (4.8-10.8) 12/01/24 21:38 RBC 2.80 M/uL (4.20-5.40) L 12/01/24 21:38 Hgb 8.0 g/dl (12.0-16.0) L 12/01/24 21: Hct 26.0 % (37.0-47.0) L 12/01/24 21:38 MCV 92.9 fL (80.0-100.0) 12/01/24 21: MCH 28.6 pg (25.0-34.0) 12/01/24 21: MCHC 30.8 g/dL (32.0-36.0) L 12/01/24 21:38 RDW Std Deviation 52.5 fL (36.4-46.3) H 12/01/24 21: RDW Coeff of Jesenia 15.5 % (11.5-14.5) H 12/01/24 21: Plt Count 365 K/uL (130-400) 12/01/24 21: MPV 10.5 fL (9.4-12.4) 12/01/24 21:38 Immature Gran % (Auto) 2.7 % 12/01/24 21:38 Neut % (Auto) 58.4 % 12/01/24 21:38 Lymph % (Auto) 26.2 % 12/01/24 21:38 [place] % (Auto) 10.7 % 12/01/24 21: Eos % (Auto) 2.0 % 12/01/24 21: Baso % (Auto) 0.0 % 12/01/24: Neut # (Auto) 4.35 K/uL (1.40-6.50) 12/01/24 21: Lymph # (Auto) 1.95 K/uL (1.20-3.40) 12/01/24 21:38 [place] # (Auto) 0.80 K/uL (0.11-0.59) H 12/01/24 21: Eos # (Auto) 0.15 K/uL (0.00-0.50) 12/01/24 21: Baso # (Auto) 0.00 K/uL (0.00-0.20) 12/01/24 21: Immature Gran # (Auto) 0.20 K/uL (0.01-0.20) 12/01/24 21:38 Polychromasia 2+ 12/01/24 21:38 Anisocytosis Present 12/01/24 21:38 PT 10.4 Seconds (9.0-12.0) 12/01/24 21:38 INR 1.0 (0.9-1.1) 12/01/24 21:38 APTT 26 Seconds (21-31) 12/01/24 21:38 PTT Ratio 1.0 12/01/24 21:38 Sodium 137 mmol/L (136-145) 12/01/24 21:38 Potassium 3.4 mmol/L (3.5-5.1) L 12/01/24 21:38 Chloride 107 mmol/L (98-107) 12/01/24 21:38 Carbon Dioxide 25 mmol/L (21-32) 12/01/24 21:38 Anion Gap 5 (3-11) 12/01/24 21:38 BUN 6 mg/dl (6-23) 12/01/24 21:38 Creatinine 0.69 mg/dl (0.6-1.2) 12/01/24 21:38 Est Cr Clr Drug Dosing 137.6 ml/min 12/01/24 21:38 eGFR 126.55 12/01/24 21:38 BUN/Creatinine Ratio 8.7 (10-20) L 12/01/24 21:38 Glucose 84 mg/dl (70-99(Fasting)) 12/01/24 21:38 Calcium 9.0 mg/dl (8.6-10.3) 12/01/24 21:38 Total Bilirubin 1.2 mg/dl (0.2-1.0) H 12/01/24 21:38 AST 23 U/L (13-39) 12/01/24 21:38 ALT 16 U/L (7-52) 12/01/24 21:38 Alkaline Phosphatase 89 U/L (34-104) 12/01/24 21:38 Troponin I High Sens < 2.3 pg/ml (0-14) 12/01/24 21:38 Total Protein 7.8 gm/dl (6.0-8.3) 12/01/24 21:38 Albumin 4.1 gm/dl (3.4-5.0) 12/01/24 21:38 Globulin 3.7 gm/dl (2.5-4.0) 12/01/24 21:38 Albumin/Globulin Ratio 1.1 (0.9-2) 12/01/24 21:38 Urine Color Yellow 12/01/24 21:22 Urine Appearance Clear (Clear) 12/01/24 21:22 Urine pH 5.5 (4.5-7.5) 12/01/24 21:22 Ur Specific [place] 1.017 (1.000-1.030) 12/01/24 21:22 Urine Protein 1+ (Negative) H 12/01/24 21:22 Urine Glucose (UA) Negative (Negative) 12/01/24 21:22 Urine Ketones Trace (Negative) H 12/01/24 21:22 Urine Blood Trace (Negative) H 12/01/24 21: Urine Nitrite Negative (Negative) 12/01/24 21: Urine Bilirubin Negative (Negative) 12/01/24 21: Urine Urobilinogen Negative (Negative) 12/01/24 21:22 Ur Leukocyte Esterase Negative (Negative) 12/01/24 21:22 Urine WBC (Auto) 0-5 /hpf (0-5) 12/01/24 21:22 Urine RBC (Auto) 3-5 /hpf (0-2) H 12/01/24 21:22 U Hyaline Cast (Auto) 0-2 /lpf (0-2) 12/01/24 21:22 U Epithel Cells (Auto) 3-5 /hpf (0-2) H 12/01/24 21:22 Urine Bacteria (Auto) 1+ (None Seen) H 12/01/24 21:22 Blood Type A Positive 12/01/24 22:19 Antibody Screen POSITIVE A 12/01/24 22:[address] 12/01/24 22:03 Exam(s): CT HEAD Without Contrast EXAM: CT Head Without Intravenous Contrast CLINICAL HISTORY: Reason for exam: trauma, syncope. TECHNIQUE: Axial computed tomography images of the head/brain without intravenous contrast. CTDI is 36.9 mGy and DLP is 547.75 mGy-cm. Automated exposure control was utilized for the study. A dose lowering technique was utilized adhering to the principles of ALARA. COMPARISON: 10/17/2022. FINDINGS: Brain: Unremarkable. No acute intracranial hemorrhage, edema or abnormal mass-effect. Ventricles: Unremarkable. No ventriculomegaly. Bones/joints: Unremarkable. No acute fracture. Soft tissues: Unremarkable. Sinuses: Unremarkable as visualized. No acute sinusitis. Mastoid air cells: Unremarkable as visualized. No mastoid effusion. IMPRESSION: Negative head/brain CT. Electronically signed by: Can Rodgers MD 12/01/24 23:57 PM ECG Additional Comments: ECG. Normal sinus rhythm with rate of 88. No significant change was found. Code Status & VTE Plan VTE Prophylaxis Plan VTE Prophylaxis will be ordered: Yes
[2024-12-02] MEDS ORDERED: POLYETHYLENE (MIRALAX) 17 GM PACK PO PRN (04:46)
[2024-12-02] MEDS ORDERED: ACETAMINOPHEN 325 MG TAB PO PRN (04:46)
[2024-12-02] MEDS ORDERED: NITROGLYCERIN SL 0.4 MG/TAB TAB SL PRN (04:46)
[2024-12-02] MEDS: LEVOTHYROXINE SODIUM 137 MCG TABLET PO SCH (06:08)
[2024-12-02] MEDS: SODIUM CHLORIDE 0.9% 1,000 ML IV STA (06:08)
[2024-12-02 07:28] LABS: BUN Creatinine Ratio 9.8 (10-20); Calcium 8.6 mg/dl (8.6-10.3); Creatinine Clr Calc Pharmacy 186.2 ml/min; Potassium 3.7 mmol/L (3.5-5.1)
[2024-12-02 07:29] LABS: Anisocytosis Present; Basophils # (auto) 0.04 K/uL (0.00-0.20); Basophils % (auto) 0.8 %; Eosinophils # (auto) 0.13 K/uL (0.00-0.50); Eosinophils % (auto) 2.7 %; Immature Granulocytes # (auto) 0.03 K/uL (0.01-0.20); Immature Granulocytes % (auto) 0.6 %; Lymphocytes # (auto) 0.92 K/uL (1.20-3.40); Lymphocytes % (auto) 19.2 %; Mean Platelet Volume 9.4 fL (9.4-12.4); Monocytes # (auto) 0.63 K/uL (0.11-0.59); Monocytes % (auto) 13.1 %; Neutrophils # (auto) 3.05 K/uL (1.40-6.50); Neutrophils % (auto) 63.6 %; Platelet Count 311 K/uL (130-400); Polychromasia 2+
[2024-12-02 07:47] LABS: Hemoglobin 8.1 g/dl (12.0-16.0); Mean Corpuscular Hemoglobin 28.3 pg (25.0-34.0); Mean Corpuscular Hgb Conc 28.8 g/dL (32.0-36.0); Mean Corpuscular Volume 98.1 fL (80.0-100.0); RDW Standard Deviation 57.5 fL (36.4-46.3); Red Blood Count 2.65 M/uL (4.20-5.40)
--- NOTE | 2024-12-02 07:48 | Electrocardiogram Report ---
Test Reason : Blood Pressure : */* mmHG Vent. Rate : 88 BPM Atrial Rate : 88 BPM P-R Int : 140 ms QRS Dur : 84 ms QT Int : 372 ms P-R-T Axes : 3 22 14 degrees QTcB Int : 450 ms Normal sinus rhythm Normal ECG When compared with ECG of 19-Aug-2024 07:12, No significant change was found Confirmed by Adelso Tapia ([id number]) on 12/02/2024 7:48:28 AM Referred By: REFERRED SELF Confirmed By: Adelso Tapia
--- NOTE | 2024-12-02 08:12 | Oncology Consultation ---
Date of Consultation December 02, 2024 Assessment & Plan (1) Syncope: (2) Dizziness: (3) Autoimmune hemolytic anemia: Plan -Labs suggestive of flare of autoimmune hemolytic anemia. Recommend IVIG 1 g/kg/day x 2 days, methylprednisolone 1 g IV daily x 2 to 3 days. -Agree with treatment for possible UTI -Since she indicates that she has been compliant with sirolimus and continues to have frequent flares of AIHA, will have to discuss potentially changing long- term treatment plan. Thank you for this consult. Will follow while she is in the hospital. Please feel free to call if you have any further questions. History of Present Illness Reason for Consultation: Autoimmune hemolytic anemia Attending Physician: Serjio Boyce, DO History of Present Illness 19-year-old female with history of autoimmune hemolytic anemia currently on sirolimus who presented with syncopal episode. Outpatient labs obtained last week had revealed worsening anemia with hemoglobin dropping from baseline of 10- 11 to 9.5, increased bilirubin, elevated LDH and high reticulocyte count indicating of of flare of AIHA for which I had recommended she restart prednisone. Despite restarting prednisone, she presented about a day later after syncopal episode. She states that menstrual period started several days ago and seems to trigger flare of AIHA. States that she has been compliant with sirolimus. Allergies Allergy/AdvReac Type Severity Reaction Status Date / Time ceftriaxone Allergy Intermediate RASH Verified 08/19/24 09:25 Penicillins Allergy Unknown AUTO Verified 08/19/24 09:25 IMMUNE DISORDER Sulfa (Sulfonamide Allergy Unknown AUTO Verified 08/19/24 09:25 Antibiotics) IMMUNE DISORDER Home Medications Medication Instructions Recorded Confirmed Type aripiprazole 15 mg tablet 15 mg PO DAILY 12/02/24 12/02/24 History buspirone 15 mg tablet 15 mg PO BID 12/02/24 12/02/24 History folic acid 1 mg tablet 1 mg PO DAILY 12/02/24 12/02/24 History levothyroxine 137 mcg tablet 137 mcg PO DAILY 12/02/24 12/02/24 History prednisone 50 mg tablet 50 mg PO HS 12/02/24 12/02/24 History sertraline 100 mg tablet 100 mg PO DAILY 12/02/24 12/02/24 History sirolimus 2 mg tablet 2 mg PO DAILY 12/02/24 12/02/24 History Patient History Family History (Updated 10/03/24 @ 11:55 by Carri Minaya PA-C) Father Cancer Kidney cancer Social History Smoking Status: Current every day smoker Tobacco Type: E-cigarettes / Vaping Second Hand Exposure: No; Do You Dip or Chew Tobacco: No; Tobacco Cessation Education Requested by Patient: No Hx Alcohol Use: Yes Alcohol type: hard liquor Hx Substance Use: No Preferred Language: Swedish Communication Ability: Effective Sports Photographer Required: No Beliefs That Will Affect Care: None marital status: Single Current Living Situation: Family current occupational status: employed Other Information That Helps Us Care for You: No Feels Safe at Home: Yes Safety Concerns: Feels Safe At This Time Assistive Devices: None Results & Data Vital Signs (Past 12 Hours) Vital Signs Temp Pulse Pulse Pulse Resp BP BP 12/02/24 07:52 36.5 C 93 H 18 107/72 12/02/24 07:49 81 12/02/24 05:19 84 12/02/24 05:05 36.8 C 92 H 18 119/80 12/02/24 04:24 89 18 113/80 12/02/24 02:11 94 H 16 115/77 12/02/24 00:00 81 18 113/63 12/01/24 22:36 81 24 12/01/24 22:21 89 22 118/62 12/01/24 22:18 88 25 H 12/01/24 21:41 12/01/24 21:33 92 H 26 H 12/01/24 21:30 95/68 L 12/01/24 21:27 88 22 12/01/24 21:25 96 H 12/01/24 21:24 104/72 12/01/24 20:48 36.6 C 89 124/82 Pulse Ox O2 Del Method 12/02/24 07:52 96 Room Air 12/02/24 07:49 12/02/24 05:19 12/02/24 05:05 97 Room Air 12/02/24 04:24 95 Room Air 12/02/24 02:11 95 Room Air 12/02/24 00:00 97 Room Air 12/01/24 22:36 97 12/01/24 22:21 100 12/01/24 22:18 12/01/24 21:41 96 Room Air 12/01/24 21:33 12/01/24 21:30 12/01/24 21:27 12/01/24 21:25 12/01/24 21:24 12/01/24 20:48 99 Room Air
[2024-12-02] MEDS: SERTRALINE HCL 100 MG TABLET PO SCH (08:44)
[2024-12-02] MEDS: busPIRone 15 MG TAB PO SCH (08:44)
[2024-12-02] MEDS: ARIPiprazole 15 MG TAB PO SCH (08:44)
[2024-12-02] MEDS: FOLIC ACID 1 MG TAB PO SCH (08:44)
[2024-12-02] MEDS: SIROLIMUS 0.5 MG TABLET PO SCH (10:30)
[2024-12-02] MEDS: AZTREONAM 2,000 MG in DEXTROSE 5% MINI-B 100 ML IV SCH (10:59)
--- NOTE | 2024-12-02 12:29 | Hospitalist Progress Note ---
Date of Service December 02, 2024 Assessment & Plan (1) Syncope: Plan: Suspect orthostasis due to blood loss (2) Suspected UTI: (3) Symptomatic anemia: (4) Autoimmune hemolytic anemia: (5) Mccormick syndrome: (6) Hypothyroidism: Plan Patient presented to the emergency room with acute syncopal event. Suspect combination of symptomatic anemia from her hemolytic anemia, blood loss from menses compounded by possible UTI. Continue antibiotics, follow urine culture Continue steroids for treatment of her hemolytic anemia, seems to be stabilizing hemoglobin Continue other home medications as prescribed Hematology recommendations pending Admission and Anticipated Discharge Date Admission Date: December 02, 2024 Subjective Patient fatigued from the long night in the ED, offers no acute complaints Physical Exam Physical Exam: Constitutional: Sleeping but easily awakened Lungs: Clear to auscultation, decreased, no wheezes rales or rhonchi CV: S1-S2, regular Abdomen: Soft, nontender, nondistended Psych: Cooperative, normal mood Results & Data Results & Data Vital Signs (Past 12 Hours) Vital Signs Temp Pulse Pulse Pulse Resp BP BP 12/02/24 11:32 36.7 C 92 H 18 107/68 12/02/24 07:52 36.5 C 93 H 18 107/72 12/02/24 07:49 81 12/02/24 05:19 84 12/02/24 05:05 36.8 C 92 H 18 119/80 12/02/24 04:24 89 18 113/80 12/02/24 02:11 94 H 16 115/77 Pulse Ox O2 Del Method 12/02/24 11:32 97 Room Air 12/02/24 07:52 96 Room Air 12/02/24 07:49 12/02/24 05:19 12/02/24 05:05 97 Room Air 12/02/24 04:24 95 Room Air 12/02/24 02:11 95 Room Air Diagnostic Findings Hemoglobin reviewed, stable
[2024-12-02] MEDS: diphenhydrAMINE 50 MG/ML VIAL IV STA (12:40)
[2024-12-02] MEDS: ACETAMINOPHEN 1,000 MG/100 ML VIAL IV STA (12:41)
[2024-12-02 16:22] LABS: Hemoglobin 8.3 g/dl (12.0-16.0)
[2024-12-02] MEDS ORDERED: methylPREDNISolone 10 mg/mL (For Ped Dose < 7mg) IV SCH (17:15)
[2024-12-02] MEDS ORDERED: IMMUNE GLOBULIN (HUMAN) SOLN IV SCH (17:15)
[2024-12-02 17:47] LABS: Reticulocyte % 11.81 % (0.50-2.00); Reticulocytes # 0.3 10^6/uL (0.020-0.100)
[2024-12-02] MEDS: methylPREDNISolone 1,000 MG in NSS 250 ML IV SCH (18:47)
[2024-12-02] MEDS: Octagam 10% IVIG 10 gram bottle IV SCH (20:47)
[2024-12-02] MEDS ORDERED: predniSONE 50 MG TAB PO SCH (21:00)
[2024-12-02] MEDS: Octagam 10% IVIG 20 gram bottle IV SCH (21:48)
[2024-12-03 07:32] LABS: Hematocrit (blood only) 24.5 % (37.0-47.0); Hemoglobin 8.4 g/dl (12.0-16.0); Mean Corpuscular Hemoglobin 35.3 pg (25.0-34.0); Mean Corpuscular Hgb Conc 34.3 g/dL (32.0-36.0); Mean Corpuscular Volume 102.9 fL (80.0-100.0); Mean Platelet Volume 9.3 fL (9.4-12.4); Platelet Count 367 K/uL (130-400); RDW Coefficient of Variation 22.5 % (11.5-14.5); Red Blood Count 2.38 M/uL (4.20-5.40); White Blood Count 6.79 K/ul (4.8-10.8)
--- NOTE | 2024-12-03 10:39 | Hospitalist Progress Note ---
Date of Service December 03, 2024 Assessment & Plan (1) Syncope: Plan: Suspect orthostasis due to blood loss (2) Suspected UTI: (3) Symptomatic anemia: (4) Autoimmune hemolytic anemia: (5) Mccormick syndrome: (6) Hypothyroidism: (7) Patent foramen ovale: Plan Patient with acute syncopal event due to acute on chronic anemia due to autoimmune hemolysis exacerbated by menses. Reviewed hematology recommendations, continue IVIG and IV steroids Follow urine culture, continue aztreonam based on previous cultures Outpatient follow-up for small PFO Monitor hemoglobin Admission and Anticipated Discharge Date Admission Date: December 02, 2024 Subjective No acute issues overnight. Patient denies any lightheadedness or dizziness. Reports being ambulatory in the room. Physical Exam Physical Exam: Constitutional: Alert, nontoxic, facial features consistent with chronic steroid use HEENT: Mucous membranes moist. Lungs: Clear to auscultation, decreased, no wheezes rales or rhonchi CV: S1-S2, regular Abdomen: Soft, nontender, nondistended Extremities: No significant edema Neuro: No focal deficits Psych: Cooperative, normal mood Results & Data Results & Data Vital Signs (Past 12 Hours) Vital Signs Temp Pulse Pulse Resp BP Pulse Ox O2 Del Method 12/03/24 07:54 36.5 C 78 16 102/72 95 Room Air 12/03/24 00:45 36.5 C 76 18 123/71 96 Room Air Diagnostic Findings Reviewed imaging, laboratory and diagnostic studies. Pertinent findings as below. Echocardiogram reviewed, normal ejection fraction, small PFO noted Hemoglobin 8.4, slowly improving Reticulocyte count noted and appropriate Urine culture still pending
[2024-12-03 23:58] VITALS: RESP 18
[2024-12-04 07:44] LABS: BUN Creatinine Ratio 16.4 (10-20); Calcium 9.2 mg/dl (8.6-10.3); Potassium 3.7 mmol/L (3.5-5.1)
[2024-12-04 08:17] LABS: Hemoglobin 8.2 g/dl (12.0-16.0); Mean Corpuscular Hemoglobin 28.8 pg (25.0-34.0); Mean Corpuscular Hgb Conc 33.7 g/dL (32.0-36.0); Mean Corpuscular Volume 94.9 fL (80.0-100.0); Mean Platelet Volume 9.7 fL (9.4-12.4); Nucleated RBC # (auto) 0.02 K/uL (0.00-0.12); Nucleated RBC % (auto) 0.2 %; Platelet Count 440 K/uL (130-400); RDW Coefficient of Variation 16.4 % (11.5-14.5); RDW Standard Deviation 54.4 fL (36.4-46.3); Red Blood Count 2.95 M/uL (4.20-5.40); White Blood Count 9.76 K/ul (4.8-10.8)
--- NOTE | 2024-12-04 08:25 | Progress Note ---
Date of Service December 04, 2024 Assessment & Plan Admission and Anticipated Discharge Date Admission Date: December 02, 2024 Results & Data Vital Signs (Past 12 Hours) Vital Signs Temp Pulse Resp BP Pulse Ox O2 Del Method 12/04/24 07:48 36.5 C 70 18 127/75 96 Room Air 12/03/24 23:45 36.5 C 83 18 106/73 94 Room Air
--- NOTE | 2024-12-04 09:02 | Discharge Summary ---
Discharge Summary Date of Service December 04, 2024 Principal Dx & Hospital Course #1 = Principal Diagnosis (1) Syncope: Suspect orthostasis due to blood loss (2) Symptomatic anemia: (3) Autoimmune hemolytic anemia: (4) Lai syndrome: (5) Hypothyroidism: (6) Patent foramen ovale: Patient is a 19-year-old female with known autoimmune hemolytic anemia, presented to the ED with acute syncopal event. Patient was noted to be more a nemic and was referred for hospitalization. Patient was cared for in the hospital. Her hemoglobin was monitored. She ultimately did not require transfusion. Hematology evaluated patient and recommended IVIG and IV steroids over the course of 2 days. She received these treatments. Her hemoglobin stabilized and started to improve. She had no further lightheadedness and dizziness or presyncopal symptoms. On admission there was also concern for possible urinary tract infection. She was initially treated with antibiotics. Urine culture ultimately did not reveal any singular bacterial growth. She ruled out for UTI and antibiotics were discontinued. Patient did also have an echocardiogram performed that showed a small PFO which at this point appears to be asymptomatic but may need outpatient follow-up and evaluation. On day of discharge she is awake tolerating her diet. Up and ambulatory and able to be discharged home to outpatient follow-up. Plan Patient with acute syncopal event due to acute on chronic anemia due to autoimmune hemolysis exacerbated by menses. 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 Patient was lately feeling dizzy and tired and she was also having heavy menses and outpatient labs showed hemoglobin 9 and her trading specialist told her to start taking steroids. She started steroids couple of days ago. Tonight when patient was walking she felt dizzy and passed out and slowly fell down. Patient does not think she hit her head. She thinks she passed out only for few seconds. She was able to get up. Currently resting comfortably and hemodynamically stable. Denies any headache currently. Vision is okay. No runny nose or sore throat. No cough. No chest pain. No shortness of breath. No nausea. No abdominal pain. Normal bowel and bladder movements. Past medical history. As mentioned above Past surgical history. Tongue-tie release. Social history. Lives with her mother. Former smoker. No alcohol use. No drug use. Family history. Mother has arthritis. Father had kidney cancer. Aunt had leukemia. Maternal grandfather had colon cancer. Admission Exam Per Admitting Provider See H&P Discharge Exam Constitutional: Alert, nontoxic HEENT: Mucous membranes moist. Facial features consistent with prolonged/long- term steroid use Lungs: Clear to auscultation, decreased, no wheezes rales or rhonchi CV: S1-S2, regular Abdomen: Soft, nontender, nondistended Extremities: Nonpitting edema consistent with her steroid use Neuro: No focal deficits Psych: Cooperative, normal mood Updated Medication List Medication Instructions Recorded Confirmed Type aripiprazole 15 mg tablet 15 mg PO DAILY 12/02/24 12/02/24 History buspirone 15 mg tablet 15 mg PO BID 12/02/24 12/02/24 History folic acid 1 mg tablet 1 mg PO DAILY 12/02/24 12/02/24 History levothyroxine 137 mcg tablet 137 mcg PO DAILY 12/02/24 12/02/24 History prednisone 50 mg tablet 50 mg PO HS 12/02/24 12/02/24 History sertraline 100 mg tablet 100 mg PO DAILY 12/02/24 12/02/24 History sirolimus 2 mg tablet 2 mg PO DAILY 12/02/24 12/02/24 History Hospital Stay Data Consultations 12/02/24 08:00 Consult Hematology Routine Diagnostic Imagining Performed 12/01/24 22:03 CT head/brain wo con Stat Hemoglobin 8.2 Electrolytes stable Creatinine 0.55 Echocardiogram showed ejection fraction 55 to 60%. No evidence of pulmonary hypertension. Small right to left shunt with possible small patent foramen ovale. I refer you to the full report for details. Pending Results Patient Have Any Pending Studies at Discharge: No Discharge Instructions Given to Patient (Per Discharging Provider) Follow-up with your trading specialist as scheduled next week Continue with current dose of prednisone until seen by hematology The ultrasound of your heart showed a small hole in the heart, this was present since . Discussed with your PCP outpatient cardiology evaluation You are ruled out for urinary tract infection. Total Time Total Time Spent Total Time Spent (In Minutes): 25
[2024-12-04 09:17] LABS: Reticulocyte % 11.47 % (0.50-2.00)
[2024-12-04 09:24] LABS: Bilirubin Direct 0.1 mg/dl (0-0.2); Bilirubin,Total 0.3 mg/dl (0.2-1.0)
[2024-12-04 11:51] VITALS: BP 138/84; PULSE 88; TEMP 97.9; O2SAT 100
== END 2024-12-04 12:37 | disposition home or self-care (01) ==
LOC: ED 20:43 → INTOOBSV 12-02 02:54 → SUATTDRO 12-02 02:54 → 4W 12-02 02:54 → 2N 12-03 00:43